=== PATIENT | male | born 1945 | race Caucasian/White ===

== ENCOUNTER 2016-08-13 09:34 | Outpatient (CLI) | payer MEDICARE | END 2016-08-13 09:35 | disposition home or self-care (01) | DX: D47.3 Essential (hemorrhagic) thrombocythemia (principal); Z79.01 Long term (current) use of anticoagulants ==

== ENCOUNTER 2016-08-18 10:50 | Outpatient (CLI) | payer MEDICARE | END 2016-08-18 10:51 | disposition home or self-care (01) | DX: D47.3 Essential (hemorrhagic) thrombocythemia (principal); Z79.01 Long term (current) use of anticoagulants ==

== ENCOUNTER 2016-09-03 08:58 | Outpatient (CLI) | payer MEDICARE | END 2016-09-03 08:59 | disposition home or self-care (01) | DX: D47.3 Essential (hemorrhagic) thrombocythemia (principal); Z79.01 Long term (current) use of anticoagulants ==

== ENCOUNTER 2016-09-17 09:15 | Outpatient (CLI) | payer MEDICARE | END 2016-09-17 09:16 | disposition home or self-care (01) | LOC: LAB.F 09:15 | PROVIDERS: ATTEND Physician Assistant Medical | DX: Z79.01 Long term (current) use of anticoagulants (principal); D47.3 Essential (hemorrhagic) thrombocythemia | CPT/HCPCS: 85610 ==

== ENCOUNTER 2016-09-28 09:58 | Outpatient (CLI) | payer MEDICARE | END 2016-09-28 09:59 | disposition home or self-care (01) | DX: Z79.01 Long term (current) use of anticoagulants (principal); D47.3 Essential (hemorrhagic) thrombocythemia ==

== ENCOUNTER 2016-10-05 09:52 | Outpatient (CLI) | payer MEDICARE | END 2016-10-05 09:53 | disposition home or self-care (01) | DX: D47.3 Essential (hemorrhagic) thrombocythemia (principal); Z79.01 Long term (current) use of anticoagulants ==

== ENCOUNTER 2016-10-19 10:01 | Outpatient (CLI) | payer MEDICARE | END 2016-10-19 10:02 | disposition home or self-care (01) | DX: Z79.01 Long term (current) use of anticoagulants (principal); D47.3 Essential (hemorrhagic) thrombocythemia ==

== ENCOUNTER 2016-11-02 09:38 | Outpatient (CLI) | payer MEDICARE | END 2016-11-02 09:39 | disposition home or self-care (01) | DX: E78.00 Pure hypercholesterolemia, unspecified (principal); Z79.899 Other long term (current) drug therapy; Z79.01 Long term (current) use of anticoagulants ==

== ENCOUNTER 2016-11-16 09:20 | Outpatient (CLI) | payer MEDICARE | END 2016-11-16 09:21 | disposition home or self-care (01) | DX: Z79.01 Long term (current) use of anticoagulants (principal); D47.3 Essential (hemorrhagic) thrombocythemia ==

== ENCOUNTER 2016-12-15 08:27 | Outpatient (CLI) | payer MEDICARE | END 2016-12-15 08:28 | disposition home or self-care (01) | DX: D47.3 Essential (hemorrhagic) thrombocythemia (principal); Z79.01 Long term (current) use of anticoagulants ==

== ENCOUNTER 2016-12-22 09:01 | Outpatient (CLI) | payer MEDICARE | END 2016-12-22 09:02 | disposition home or self-care (01) | LOC: LAB.F 09:01 | PROVIDERS: ATTEND Physician Assistant Medical | DX: D47.3 Essential (hemorrhagic) thrombocythemia (principal); Z79.01 Long term (current) use of anticoagulants | CPT/HCPCS: 85610 ==

== ENCOUNTER 2017-01-14 07:59 | Outpatient (CLI) | payer MEDICARE | END 2017-01-14 08:00 | disposition home or self-care (01) | LOC: LAB.F 07:59 | PROVIDERS: ATTEND Physician Assistant Medical | DX: D47.3 Essential (hemorrhagic) thrombocythemia (principal); Z79.01 Long term (current) use of anticoagulants | CPT/HCPCS: 85610 ==

== ENCOUNTER 2017-02-11 09:44 | Outpatient (CLI) | payer MEDICARE | END 2017-02-11 09:45 | disposition home or self-care (01) | LOC: LAB.F 09:44 | PROVIDERS: ATTEND Physician Assistant Medical | DX: Z79.01 Long term (current) use of anticoagulants (principal) | CPT/HCPCS: 85610 ==

== ENCOUNTER 2017-03-11 08:55 | Outpatient (CLI) | payer MEDICARE | END 2017-03-11 08:56 | disposition home or self-care (01) | LOC: LAB.F 08:55 | PROVIDERS: ATTEND Physician Assistant Medical | DX: D47.3 Essential (hemorrhagic) thrombocythemia (principal); Z79.01 Long term (current) use of anticoagulants | CPT/HCPCS: 85610 ==

== ENCOUNTER 2017-04-08 09:14 | Outpatient (CLI) | payer MEDICARE | END 2017-04-08 09:15 | disposition home or self-care (01) | LOC: LAB.F 09:14 | PROVIDERS: ATTEND Physician Assistant Medical | DX: D47.3 Essential (hemorrhagic) thrombocythemia (principal); Z79.01 Long term (current) use of anticoagulants | CPT/HCPCS: 85610 ==

== ENCOUNTER 2017-04-21 10:12 | Outpatient (CLI) | payer MEDICARE | END 2017-04-21 10:13 | disposition home or self-care (01) | LOC: LAB.F 10:12 | PROVIDERS: ATTEND Physician Assistant Medical | DX: D47.3 Essential (hemorrhagic) thrombocythemia (principal); Z79.01 Long term (current) use of anticoagulants | CPT/HCPCS: 85610 ==

== ENCOUNTER 2017-05-05 08:52 | Outpatient (CLI) | payer MEDICARE | END 2017-05-05 08:53 | disposition home or self-care (01) | LOC: LAB.F 08:52 | PROVIDERS: ATTEND Physician Assistant Medical | DX: D47.3 Essential (hemorrhagic) thrombocythemia (principal); Z79.01 Long term (current) use of anticoagulants | CPT/HCPCS: 85610 ==

== ENCOUNTER 2017-07-12 09:01 | Outpatient (CLI) | payer MEDICARE | END 2017-07-12 09:02 | disposition home or self-care (01) | LOC: LAB.F 09:01 | PROVIDERS: ATTEND Physician Assistant Medical | DX: D47.3 Essential (hemorrhagic) thrombocythemia (principal); Z79.01 Long term (current) use of anticoagulants | CPT/HCPCS: 85610 ==

== ENCOUNTER 2017-08-11 10:10 | Outpatient (CLI) | payer MEDICARE | END 2017-08-11 10:11 | disposition home or self-care (01) | LOC: LAB.F 10:10 | PROVIDERS: ATTEND Physician Assistant Medical | DX: D47.3 Essential (hemorrhagic) thrombocythemia (principal); Z79.01 Long term (current) use of anticoagulants | CPT/HCPCS: 85610 ==

== ENCOUNTER 2017-09-08 09:09 | Outpatient (CLI) | payer MEDICARE | END 2017-09-08 09:10 | disposition home or self-care (01) | LOC: LAB.F 09:09 | PROVIDERS: ATTEND Physician Assistant Medical | DX: D47.3 Essential (hemorrhagic) thrombocythemia (principal); Z79.01 Long term (current) use of anticoagulants | CPT/HCPCS: 85610 ==

== ENCOUNTER 2017-10-07 09:07 | Outpatient (CLI) | payer MEDICARE | END 2017-10-07 09:08 | disposition home or self-care (01) | LOC: LAB.F 09:07 | PROVIDERS: ATTEND Physician Assistant Medical | DX: D47.3 Essential (hemorrhagic) thrombocythemia (principal); Z79.01 Long term (current) use of anticoagulants | CPT/HCPCS: 85610 ==

== ENCOUNTER 2017-10-14 09:55 | Outpatient (CLI) | payer MEDICARE | END 2017-10-14 09:56 | disposition home or self-care (01) | LOC: LAB.F 09:55 | PROVIDERS: ATTEND Physician Assistant Medical | DX: D47.3 Essential (hemorrhagic) thrombocythemia (principal); Z79.01 Long term (current) use of anticoagulants | CPT/HCPCS: 85610 ==

== ENCOUNTER 2017-10-21 09:37 | Outpatient (CLI) | payer MEDICARE | END 2017-10-21 09:38 | disposition home or self-care (01) | LOC: LAB.F 09:37 | PROVIDERS: ATTEND Physician Assistant Medical | DX: D47.3 Essential (hemorrhagic) thrombocythemia (principal); Z79.01 Long term (current) use of anticoagulants | CPT/HCPCS: 85610 ==

== ENCOUNTER 2017-11-04 09:56 | Outpatient (CLI) | payer MEDICARE | END 2017-11-04 09:57 | disposition home or self-care (01) | LOC: LAB.F 09:56 | PROVIDERS: ATTEND Physician Assistant Medical | DX: I82.509 Chronic embolism and thrombosis of unspecified deep veins of unspecified lower extremity (principal); I26.99 Other pulmonary embolism without acute cor pulmonale; Z79.01 Long term (current) use of anticoagulants | CPT/HCPCS: 85610 ==

== ENCOUNTER 2017-11-11 10:14 | Outpatient (CLI) | payer MEDICARE | END 2017-11-11 10:15 | disposition home or self-care (01) | LOC: LAB.F 10:14 | PROVIDERS: ATTEND Physician Assistant Medical | DX: I26.99 Other pulmonary embolism without acute cor pulmonale (principal); I82.509 Chronic embolism and thrombosis of unspecified deep veins of unspecified lower extremity; Z79.01 Long term (current) use of anticoagulants | CPT/HCPCS: 85610 ==

== ENCOUNTER 2017-11-22 08:07 | Outpatient (CLI) | payer MEDICARE | END 2017-11-22 08:08 | disposition home or self-care (01) | LOC: LAB.F 08:07 | PROVIDERS: ATTEND Physician Assistant Medical | DX: I82.509 Chronic embolism and thrombosis of unspecified deep veins of unspecified lower extremity (principal); I26.99 Other pulmonary embolism without acute cor pulmonale; Z79.01 Long term (current) use of anticoagulants | CPT/HCPCS: 85610 ==

== ENCOUNTER 2017-12-07 08:46 | Outpatient (CLI) | payer MEDICARE | END 2017-12-07 08:47 | disposition home or self-care (01) | LOC: LAB.F 08:46 | PROVIDERS: ATTEND Physician Assistant Medical | DX: I82.509 Chronic embolism and thrombosis of unspecified deep veins of unspecified lower extremity (principal); I26.99 Other pulmonary embolism without acute cor pulmonale; Z79.01 Long term (current) use of anticoagulants | CPT/HCPCS: 85610 ==

== ENCOUNTER 2018-01-10 09:28 | Outpatient (CLI) | payer MEDICARE | END 2018-01-10 09:29 | disposition home or self-care (01) | LOC: LAB.F 09:28 | PROVIDERS: ATTEND Physician Assistant Medical | DX: I82.509 Chronic embolism and thrombosis of unspecified deep veins of unspecified lower extremity (principal); I26.99 Other pulmonary embolism without acute cor pulmonale; Z79.01 Long term (current) use of anticoagulants | CPT/HCPCS: 85610 ==

== ENCOUNTER 2018-01-16 08:19 | Outpatient (CLI) | payer MEDICARE | END 2018-01-16 08:20 | disposition home or self-care (01) | LOC: LAB.F 08:19 | PROVIDERS: ATTEND Physician Assistant Medical | DX: I82.509 Chronic embolism and thrombosis of unspecified deep veins of unspecified lower extremity (principal); I26.99 Other pulmonary embolism without acute cor pulmonale; Z79.01 Long term (current) use of anticoagulants | CPT/HCPCS: 85610 ==

== ENCOUNTER 2018-01-31 09:08 | Outpatient (CLI) | payer MEDICARE | END 2018-01-31 09:09 | disposition home or self-care (01) | LOC: LAB.F 09:08 | PROVIDERS: ATTEND Physician Assistant Medical | DX: I82.509 Chronic embolism and thrombosis of unspecified deep veins of unspecified lower extremity (principal); I26.99 Other pulmonary embolism without acute cor pulmonale; Z79.01 Long term (current) use of anticoagulants | CPT/HCPCS: 85610 ==

== ENCOUNTER 2018-02-07 08:31 | Outpatient (CLI) | payer MEDICARE | END 2018-02-07 08:32 | disposition home or self-care (01) | LOC: LAB.F 08:31 | PROVIDERS: ATTEND Physician Assistant Medical | DX: I82.509 Chronic embolism and thrombosis of unspecified deep veins of unspecified lower extremity (principal); Z79.01 Long term (current) use of anticoagulants; I26.99 Other pulmonary embolism without acute cor pulmonale | CPT/HCPCS: 85610 ==

== ENCOUNTER 2018-02-14 09:17 | Outpatient (CLI) | payer MEDICARE | END 2018-02-14 09:18 | disposition home or self-care (01) | LOC: LAB.F 09:17 | PROVIDERS: ATTEND Physician Assistant Medical | DX: Z79.01 Long term (current) use of anticoagulants (principal); I82.509 Chronic embolism and thrombosis of unspecified deep veins of unspecified lower extremity; I26.99 Other pulmonary embolism without acute cor pulmonale | CPT/HCPCS: 85610 ==

== ENCOUNTER 2018-03-03 08:15 | Outpatient (CLI) | payer MEDICARE ==
[2018-03-03 11:40] LABS: BASOPHILS % (AUTO) 0.4 %; EOSINOPHILS # (AUTO) 0.2 10^3/uL (0.0-0.7); HGB - HEMOGLOBIN 15.9 g/dL (14.0-18.0); LYMPHOCYTES # (AUTO) 2.8 10^3/uL (1.5-3.5); LYMPHOCYTES % (AUTO) 45.4 %; MEAN CORPUSCULAR HEMOGLOBIN 32.3 pg (27.0-31.0); MEAN CORPUSCULAR HGB CONC 33.9 g/dL (32.0-36.0); MEAN CORPUSCULAR VOLUME 95.2 fL (80.0-94.0); MEAN PLATELET VOLUME 8.3 fL (7.4-11.4); MONOCYTES # (AUTO) 0.6 10^3/uL (0.0-1.0); MONOCYTES % (AUTO) 9.4 %; NEUTROPHILS # (AUTO) 2.5 10^3/uL (1.5-6.6); NEUTROPHILS % (AUTO) 40.8 %; PLT - PLATELET COUNT 150 10^3/uL (130-450); RED BLOOD COUNT 4.92 10^6/uL (4.70-6.10); RED CELL DISTRIBUTION WIDTH 14.5 % (12.0-15.0); WHITE BLOOD COUNT 6.1 x10^3/uL (4.8-10.8)
[2018-03-03 12:03] LABS: ALBUMIN 3.9 g/dL (3.2-5.5); ALBUMIN/GLOBULIN RATIO 1.2 (1.0-2.2); ALKALINE PHOSPHATASE 48 IU/L (42-121); ALT ALANINE AMINOTRANSFERASE 25 IU/L (10-60); AST ASPARTATE AMINOTRANSFERASE 26 IU/L (10-42); BILIRUBIN,TOTAL 0.9 mg/dL (0.2-1.0); BUN - BLOOD UREA NITROGEN 16 mg/dL (6-20); CARBON DIOXIDE - CO2 27 mmol/L (21-32); CHLORIDE 99 mmol/L (101-111); CHOL/HDL RATIO 2.7 (<5.0); CHOLESTEROL 248 mg/dL; CREATININE 0.8 mg/dL (0.6-1.2); GFR - MDRD 94 (>89); GLUCOSE 116 mg/dL (70-100); HDL CHOLESTEROL 92 mg/dL; LDL CHOLESTEROL,CALCULATED 142 mg/dL; LDL/HDL RATIO 1.5 (<3.6); SODIUM 133 mmol/L (135-145); TOTAL PROTEIN 7.2 g/dL (6.7-8.2); VLDL CHOLESTEROL 14 mg/dL
== END 2018-03-03 08:16 | disposition home or self-care (01) ==
LOC: LAB.F 08:15
PROVIDERS: ATTEND Physician Assistant Medical
DX: I82.509 Chronic embolism and thrombosis of unspecified deep veins of unspecified lower extremity (principal); I26.99 Other pulmonary embolism without acute cor pulmonale; Z79.01 Long term (current) use of anticoagulants; I10 Essential (primary) hypertension; E78.5 Hyperlipidemia, unspecified; Z12.5 Encounter for screening for malignant neoplasm of prostate; D47.3 Essential (hemorrhagic) thrombocythemia
CPT/HCPCS: 36415; 80053; 80061; 85025; 85610; G0103; 83721; 84153

== ENCOUNTER 2018-03-16 09:15 | Outpatient (CLI) | payer MEDICARE | END 2018-03-16 09:16 | disposition home or self-care (01) | LOC: LAB.F 09:15 | PROVIDERS: ATTEND Physician Assistant Medical | DX: I26.99 Other pulmonary embolism without acute cor pulmonale (principal); I82.509 Chronic embolism and thrombosis of unspecified deep veins of unspecified lower extremity; Z79.01 Long term (current) use of anticoagulants | CPT/HCPCS: 85610 ==

== ENCOUNTER 2018-03-24 07:42 | Outpatient (CLI) | payer MEDICARE | END 2018-03-24 07:43 | disposition home or self-care (01) | LOC: LAB.F 07:42 | PROVIDERS: ATTEND Physician Assistant Medical | DX: I82.509 Chronic embolism and thrombosis of unspecified deep veins of unspecified lower extremity (principal); I26.99 Other pulmonary embolism without acute cor pulmonale; Z79.01 Long term (current) use of anticoagulants | CPT/HCPCS: 85610 ==

== ENCOUNTER 2018-03-30 08:18 | Outpatient (CLI) | payer MEDICARE | END 2018-03-30 08:19 | disposition home or self-care (01) | LOC: LAB.F 08:18 | PROVIDERS: ATTEND Physician Assistant Medical | DX: I82.509 Chronic embolism and thrombosis of unspecified deep veins of unspecified lower extremity (principal); I26.99 Other pulmonary embolism without acute cor pulmonale; Z79.01 Long term (current) use of anticoagulants | CPT/HCPCS: 85610 ==

== ENCOUNTER 2018-04-13 07:50 | Outpatient (CLI) | payer MEDICARE | END 2018-04-13 07:51 | disposition home or self-care (01) | LOC: LAB.F 07:50 | PROVIDERS: ATTEND Physician Assistant Medical | DX: I82.509 Chronic embolism and thrombosis of unspecified deep veins of unspecified lower extremity (principal); I26.99 Other pulmonary embolism without acute cor pulmonale; Z79.01 Long term (current) use of anticoagulants | CPT/HCPCS: 85610 ==

== ENCOUNTER 2018-05-11 08:56 | Outpatient (CLI) | payer MEDICARE | END 2018-05-11 08:57 | disposition home or self-care (01) | LOC: LAB.F 08:56 | PROVIDERS: ATTEND Physician Assistant Medical | DX: I82.509 Chronic embolism and thrombosis of unspecified deep veins of unspecified lower extremity (principal); I26.99 Other pulmonary embolism without acute cor pulmonale; Z79.01 Long term (current) use of anticoagulants | CPT/HCPCS: 85610 ==

== ENCOUNTER 2018-05-23 09:13 | Outpatient (CLI) | payer MEDICARE | END 2018-05-23 09:14 | disposition home or self-care (01) | LOC: LAB.F 09:13 | PROVIDERS: ATTEND Physician Assistant Medical | DX: I82.509 Chronic embolism and thrombosis of unspecified deep veins of unspecified lower extremity (principal); I26.99 Other pulmonary embolism without acute cor pulmonale; Z79.01 Long term (current) use of anticoagulants | CPT/HCPCS: 85610 ==

== ENCOUNTER 2018-05-30 09:35 | Outpatient (CLI) | payer MEDICARE | END 2018-05-30 09:36 | disposition home or self-care (01) | LOC: LAB.F 09:35 | PROVIDERS: ATTEND Physician Assistant Medical | DX: Z79.01 Long term (current) use of anticoagulants (principal); I82.509 Chronic embolism and thrombosis of unspecified deep veins of unspecified lower extremity; I26.99 Other pulmonary embolism without acute cor pulmonale | CPT/HCPCS: 85610 ==

== ENCOUNTER 2018-06-06 09:28 | Outpatient (CLI) | payer MEDICARE | END 2018-06-06 09:29 | disposition home or self-care (01) | LOC: LAB.F 09:28 | PROVIDERS: ATTEND Physician Assistant Medical | DX: I82.509 Chronic embolism and thrombosis of unspecified deep veins of unspecified lower extremity (principal); I26.99 Other pulmonary embolism without acute cor pulmonale; Z79.01 Long term (current) use of anticoagulants | CPT/HCPCS: 85610 ==

== ENCOUNTER 2018-06-13 09:10 | Outpatient (CLI) | payer MEDICARE | END 2018-06-13 09:11 | disposition home or self-care (01) | LOC: LAB.F 09:10 | PROVIDERS: ATTEND Physician Assistant Medical | DX: I82.509 Chronic embolism and thrombosis of unspecified deep veins of unspecified lower extremity (principal); I26.99 Other pulmonary embolism without acute cor pulmonale; Z79.01 Long term (current) use of anticoagulants | CPT/HCPCS: 85610 ==

== ENCOUNTER 2018-06-20 10:00 | Outpatient (CLI) | payer MEDICARE ==
[2018-06-20 17:58] LABS: INR 1.8 (0.8-1.2); PT - PROTHROMBIN TIME 20.5 secs (9.9-12.6)
== END 2018-06-20 10:01 | disposition home or self-care (01) ==
LOC: LAB.F 10:00
PROVIDERS: ATTEND Physician Assistant Medical
DX: I82.509 Chronic embolism and thrombosis of unspecified deep veins of unspecified lower extremity (principal); Z79.01 Long term (current) use of anticoagulants; I26.99 Other pulmonary embolism without acute cor pulmonale
CPT/HCPCS: 36415; 85610

== ENCOUNTER 2018-07-03 09:33 | Outpatient (CLI) | payer MEDICARE | END 2018-07-03 09:34 | disposition home or self-care (01) | LOC: LAB.F 09:33 | PROVIDERS: ATTEND Physician Assistant Medical | DX: I82.509 Chronic embolism and thrombosis of unspecified deep veins of unspecified lower extremity (principal); Z79.01 Long term (current) use of anticoagulants; I26.99 Other pulmonary embolism without acute cor pulmonale | CPT/HCPCS: 85610 ==

== ENCOUNTER 2018-07-27 08:18 | Outpatient (CLI) | payer MEDICARE | END 2018-07-27 08:19 | disposition home or self-care (01) | LOC: LAB.F 08:18 | PROVIDERS: ATTEND Physician Assistant Medical | DX: I82.509 Chronic embolism and thrombosis of unspecified deep veins of unspecified lower extremity (principal); I26.99 Other pulmonary embolism without acute cor pulmonale; Z79.01 Long term (current) use of anticoagulants | CPT/HCPCS: 85610 ==

== ENCOUNTER 2018-08-09 09:14 | Outpatient (CLI) | payer MEDICARE | END 2018-08-09 09:15 | disposition home or self-care (01) | LOC: LAB.F 09:14 | PROVIDERS: ATTEND Physician Assistant Medical | DX: Z79.01 Long term (current) use of anticoagulants (principal); I82.509 Chronic embolism and thrombosis of unspecified deep veins of unspecified lower extremity; I26.99 Other pulmonary embolism without acute cor pulmonale | CPT/HCPCS: 85610 ==

== ENCOUNTER 2018-08-24 09:35 | Outpatient (CLI) | payer MEDICARE | END 2018-08-24 09:36 | disposition home or self-care (01) | LOC: LAB.F 09:35 | PROVIDERS: ATTEND Physician Assistant Medical | DX: I82.509 Chronic embolism and thrombosis of unspecified deep veins of unspecified lower extremity (principal); I26.99 Other pulmonary embolism without acute cor pulmonale; Z79.01 Long term (current) use of anticoagulants | CPT/HCPCS: 85610 ==

== ENCOUNTER 2018-09-14 09:32 | Outpatient (CLI) | payer MEDICARE | END 2018-09-14 09:33 | disposition home or self-care (01) | LOC: LAB.F 09:32 | PROVIDERS: ATTEND Physician Assistant Medical | DX: I82.509 Chronic embolism and thrombosis of unspecified deep veins of unspecified lower extremity (principal); Z79.01 Long term (current) use of anticoagulants; I26.99 Other pulmonary embolism without acute cor pulmonale | CPT/HCPCS: 85610 ==

== ENCOUNTER 2018-09-21 09:01 | Outpatient (CLI) | payer MEDICARE | END 2018-09-21 09:02 | disposition home or self-care (01) | LOC: LAB.F 09:01 | PROVIDERS: ATTEND Physician Assistant Medical | DX: I82.509 Chronic embolism and thrombosis of unspecified deep veins of unspecified lower extremity (principal); Z79.01 Long term (current) use of anticoagulants; I26.99 Other pulmonary embolism without acute cor pulmonale | CPT/HCPCS: 85610 ==

== ENCOUNTER 2018-09-29 07:51 | Outpatient (CLI) | payer MEDICARE ==
[2018-09-29 11:02] LABS: BASOPHILS % (AUTO) 0.4 %; EOSINOPHILS # (AUTO) 0.3 10^3/uL (0.0-0.7); EOSINOPHILS % (AUTO) 3.9 %; HGB - HEMOGLOBIN 16.1 g/dL (14.0-18.0); LYMPHOCYTES # (AUTO) 3.3 10^3/uL (1.5-3.5); LYMPHOCYTES % (AUTO) 45.1 %; MEAN CORPUSCULAR HEMOGLOBIN 32.5 pg (27.0-31.0); MEAN CORPUSCULAR HGB CONC 34.2 g/dL (32.0-36.0); MEAN CORPUSCULAR VOLUME 95.1 fL (80.0-94.0); MEAN PLATELET VOLUME 8.6 fL (7.4-11.4); MONOCYTES # (AUTO) 0.6 10^3/uL (0.0-1.0); MONOCYTES % (AUTO) 7.9 %; NEUTROPHILS # (AUTO) 3.2 10^3/uL (1.5-6.6); NEUTROPHILS % (AUTO) 42.7 %; PLT - PLATELET COUNT 158 10^3/uL (130-450); RED BLOOD COUNT 4.96 10^6/uL (4.70-6.10); RED CELL DISTRIBUTION WIDTH 13.6 % (12.0-15.0); WHITE BLOOD COUNT 7.4 x10^3/uL (4.8-10.8)
[2018-09-29 11:26] LABS: ALBUMIN 3.9 g/dL (3.2-5.5); ALBUMIN/GLOBULIN RATIO 1.2 (1.0-2.2); ALKALINE PHOSPHATASE 49 IU/L (42-121); ALT ALANINE AMINOTRANSFERASE 27 IU/L (10-60); AST ASPARTATE AMINOTRANSFERASE 27 IU/L (10-42); BILIRUBIN,TOTAL 1.3 mg/dL (0.2-1.0); BUN - BLOOD UREA NITROGEN 21 mg/dL (6-20); CALCIUM 9.1 mg/dL (8.5-10.3); CARBON DIOXIDE - CO2 27 mmol/L (21-32); CHLORIDE 99 mmol/L (101-111); CHOL/HDL RATIO 3.3 (<5.0); CHOLESTEROL 268 mg/dL; CREATININE 0.8 mg/dL (0.6-1.2); GFR - MDRD 94 (>89); GLUCOSE 113 mg/dL (70-100); HDL CHOLESTEROL 82 mg/dL; LDL CHOLESTEROL,CALCULATED 160 mg/dL; SODIUM 138 mmol/L (135-145); TOTAL PROTEIN 7.2 g/dL (6.7-8.2); VLDL CHOLESTEROL 26 mg/dL
[2018-09-29 11:27] LABS: HB2 TOTAL 18.4 g/dL; HEMOGLOBIN A1C 0.68 g/dL; HEMOGLOBIN A1C % 5.5 % (4.6-6.2)
== END 2018-09-29 07:52 | disposition home or self-care (01) ==
LOC: LAB.F 07:51
PROVIDERS: ATTEND Physician Assistant Medical
DX: I10 Essential (primary) hypertension (principal); E78.5 Hyperlipidemia, unspecified; R73.01 Impaired fasting glucose
CPT/HCPCS: 36415; 80053; 80061; 83036; 83721; 85025

== ENCOUNTER 2018-10-05 09:11 | Outpatient (CLI) | payer MEDICARE | END 2018-10-05 09:12 | disposition home or self-care (01) | LOC: LAB.F 09:11 | PROVIDERS: ATTEND Physician Assistant Medical | DX: I82.509 Chronic embolism and thrombosis of unspecified deep veins of unspecified lower extremity (principal); I26.99 Other pulmonary embolism without acute cor pulmonale; Z79.01 Long term (current) use of anticoagulants | CPT/HCPCS: 85610 ==

== ENCOUNTER 2018-10-11 09:04 | Outpatient (CLI) | payer MEDICARE | END 2018-10-11 09:05 | disposition home or self-care (01) | LOC: LAB.F 09:04 | PROVIDERS: ATTEND Physician Assistant Medical | DX: I82.509 Chronic embolism and thrombosis of unspecified deep veins of unspecified lower extremity (principal); Z79.01 Long term (current) use of anticoagulants; I26.99 Other pulmonary embolism without acute cor pulmonale | CPT/HCPCS: 85610 ==

== ENCOUNTER 2018-10-23 09:07 | Outpatient (CLI) | payer MEDICARE | END 2018-10-23 09:08 | disposition home or self-care (01) | LOC: LAB.F 09:07 | PROVIDERS: ATTEND Physician Assistant Medical | DX: I82.509 Chronic embolism and thrombosis of unspecified deep veins of unspecified lower extremity (principal); I26.99 Other pulmonary embolism without acute cor pulmonale; Z79.01 Long term (current) use of anticoagulants | CPT/HCPCS: 85610 ==

== ENCOUNTER 2018-11-23 08:45 | Outpatient (CLI) | payer MEDICARE | END 2018-11-23 08:46 | disposition home or self-care (01) | LOC: LAB.F 08:45 | PROVIDERS: ATTEND Physician Assistant Medical | DX: Z79.01 Long term (current) use of anticoagulants (principal); I82.509 Chronic embolism and thrombosis of unspecified deep veins of unspecified lower extremity; I26.99 Other pulmonary embolism without acute cor pulmonale | CPT/HCPCS: 85610 ==

== ENCOUNTER 2018-12-21 09:03 | Outpatient (CLI) | payer MEDICARE | END 2018-12-21 09:04 | disposition home or self-care (01) | LOC: LAB.F 09:03 | PROVIDERS: ATTEND Physician Assistant Medical | DX: Z79.01 Long term (current) use of anticoagulants (principal); I82.509 Chronic embolism and thrombosis of unspecified deep veins of unspecified lower extremity; I26.99 Other pulmonary embolism without acute cor pulmonale | CPT/HCPCS: 85610 ==

== ENCOUNTER 2019-01-04 09:50 | Outpatient (CLI) | payer MEDICARE | END 2019-01-04 09:51 | disposition home or self-care (01) | LOC: LAB.F 09:50 | PROVIDERS: ATTEND Physician Assistant Medical | DX: E78.5 Hyperlipidemia, unspecified (principal) ==

== ENCOUNTER 2019-01-05 09:02 | Outpatient (CLI) | payer MEDICARE ==
[2019-01-05 17:57] LABS: CHOL/HDL RATIO 3.2 (<5.0); CHOLESTEROL 234 mg/dL; HDL CHOLESTEROL 74 mg/dL; LDL CHOLESTEROL,CALCULATED 145 mg/dL; VLDL CHOLESTEROL 15 mg/dL
== END 2019-01-05 09:03 | disposition home or self-care (01) ==
LOC: LAB.F 09:02
PROVIDERS: ATTEND Physician Assistant Medical
DX: E78.5 Hyperlipidemia, unspecified (principal)
CPT/HCPCS: 36415; 80061; 83721

== ENCOUNTER 2019-01-18 09:00 | Outpatient (CLI) | payer MEDICARE | END 2019-01-18 09:01 | disposition home or self-care (01) | LOC: LAB.F 09:00 | PROVIDERS: ATTEND Physician Assistant Medical | DX: I82.509 Chronic embolism and thrombosis of unspecified deep veins of unspecified lower extremity (principal); Z79.01 Long term (current) use of anticoagulants; I26.99 Other pulmonary embolism without acute cor pulmonale | CPT/HCPCS: 85610 ==

== ENCOUNTER 2019-02-15 08:48 | Outpatient (CLI) | payer MEDICARE | END 2019-02-15 08:49 | disposition home or self-care (01) | LOC: LAB.S 08:48 | PROVIDERS: ATTEND Physician Assistant Medical | DX: Z79.01 Long term (current) use of anticoagulants (principal); I82.509 Chronic embolism and thrombosis of unspecified deep veins of unspecified lower extremity; I26.99 Other pulmonary embolism without acute cor pulmonale | CPT/HCPCS: 85610 ==

== ENCOUNTER 2019-03-15 09:30 | Outpatient (CLI) | payer MEDICARE | END 2019-03-15 09:31 | disposition home or self-care (01) | LOC: LAB.S 09:30 | PROVIDERS: ATTEND Physician Assistant Medical | DX: I26.99 Other pulmonary embolism without acute cor pulmonale (principal); I82.509 Chronic embolism and thrombosis of unspecified deep veins of unspecified lower extremity; Z79.01 Long term (current) use of anticoagulants | CPT/HCPCS: 85610 ==

== ENCOUNTER 2019-04-12 09:39 | Outpatient (CLI) | payer MEDICARE | END 2019-04-12 09:40 | disposition home or self-care (01) | LOC: LAB.S 09:39 | PROVIDERS: ATTEND Physician Assistant Medical | DX: I82.509 Chronic embolism and thrombosis of unspecified deep veins of unspecified lower extremity (principal); I26.99 Other pulmonary embolism without acute cor pulmonale; Z79.01 Long term (current) use of anticoagulants | CPT/HCPCS: 85610 ==

== ENCOUNTER 2019-04-16 08:55 | Outpatient (CLI) | payer MEDICARE | END 2019-04-16 08:56 | disposition home or self-care (01) | LOC: LAB.S 08:55 | PROVIDERS: ATTEND Physician Assistant Medical | DX: Z79.01 Long term (current) use of anticoagulants (principal); I82.509 Chronic embolism and thrombosis of unspecified deep veins of unspecified lower extremity; I26.99 Other pulmonary embolism without acute cor pulmonale | CPT/HCPCS: 85610 ==

== ENCOUNTER 2019-04-27 09:02 | Outpatient (CLI) | payer MEDICARE | END 2019-04-27 09:03 | disposition home or self-care (01) | LOC: LAB.S 09:02 | PROVIDERS: ATTEND Physician Assistant Medical | DX: Z79.01 Long term (current) use of anticoagulants (principal); I82.509 Chronic embolism and thrombosis of unspecified deep veins of unspecified lower extremity; I26.99 Other pulmonary embolism without acute cor pulmonale | CPT/HCPCS: 85610 ==

== ENCOUNTER 2019-05-11 08:33 | Outpatient (CLI) | payer MEDICARE | END 2019-05-11 08:34 | disposition home or self-care (01) | LOC: LAB.S 08:33 | PROVIDERS: ATTEND Physician Assistant Medical | DX: Z79.01 Long term (current) use of anticoagulants (principal); I82.509 Chronic embolism and thrombosis of unspecified deep veins of unspecified lower extremity; I26.99 Other pulmonary embolism without acute cor pulmonale | CPT/HCPCS: 85610 ==

== ENCOUNTER 2019-05-18 08:29 | Outpatient (CLI) | payer MEDICARE | END 2019-05-18 08:30 | disposition home or self-care (01) | LOC: LAB.S 08:29 | PROVIDERS: ATTEND Physician Assistant Medical | DX: I82.509 Chronic embolism and thrombosis of unspecified deep veins of unspecified lower extremity (principal); I26.99 Other pulmonary embolism without acute cor pulmonale; Z79.01 Long term (current) use of anticoagulants | CPT/HCPCS: 85610 ==

== ENCOUNTER 2019-05-25 09:19 | Outpatient (CLI) | payer MEDICARE | END 2019-05-25 09:20 | disposition home or self-care (01) | LOC: LAB.S 09:19 | PROVIDERS: ATTEND Physician Assistant Medical | DX: Z79.01 Long term (current) use of anticoagulants (principal); I82.509 Chronic embolism and thrombosis of unspecified deep veins of unspecified lower extremity; I26.99 Other pulmonary embolism without acute cor pulmonale | CPT/HCPCS: 85610 ==

== ENCOUNTER 2019-06-01 09:16 | Outpatient (CLI) | payer MEDICARE | END 2019-06-01 09:17 | disposition home or self-care (01) | LOC: LAB.S 09:16 | PROVIDERS: ATTEND Physician Assistant Medical | DX: Z79.01 Long term (current) use of anticoagulants (principal); I82.509 Chronic embolism and thrombosis of unspecified deep veins of unspecified lower extremity; I26.99 Other pulmonary embolism without acute cor pulmonale | CPT/HCPCS: 85610 ==

== ENCOUNTER 2019-06-15 08:09 | Outpatient (CLI) | payer MEDICARE | END 2019-06-15 08:10 | disposition home or self-care (01) | LOC: LAB.S 08:09 | PROVIDERS: ATTEND Physician Assistant Medical | DX: Z79.01 Long term (current) use of anticoagulants (principal); I82.509 Chronic embolism and thrombosis of unspecified deep veins of unspecified lower extremity; I26.99 Other pulmonary embolism without acute cor pulmonale | CPT/HCPCS: 85610 ==

== ENCOUNTER 2019-07-13 08:18 | Outpatient (CLI) | payer MEDICARE | END 2019-07-13 23:59 | disposition home or self-care (01) | LOC: LAB.S 08:18 | PROVIDERS: ATTEND Physician Assistant Medical | DX: Z79.01 Long term (current) use of anticoagulants (principal); I82.509 Chronic embolism and thrombosis of unspecified deep veins of unspecified lower extremity; I26.99 Other pulmonary embolism without acute cor pulmonale | CPT/HCPCS: 85610 ==

== ENCOUNTER 2019-07-20 07:59 | Outpatient (CLI) | payer MEDICARE | END 2019-07-20 08:00 | disposition home or self-care (01) | LOC: LAB.S 07:59 | PROVIDERS: ATTEND Physician Assistant Medical | DX: Z79.01 Long term (current) use of anticoagulants (principal); I82.509 Chronic embolism and thrombosis of unspecified deep veins of unspecified lower extremity; I26.99 Other pulmonary embolism without acute cor pulmonale | CPT/HCPCS: 85610 ==

== ENCOUNTER 2019-07-27 08:18 | Outpatient (CLI) | payer MEDICARE | END 2019-07-27 08:19 | disposition home or self-care (01) | LOC: LAB.S 08:18 | PROVIDERS: ATTEND Physician Assistant Medical | DX: Z79.01 Long term (current) use of anticoagulants (principal); I82.509 Chronic embolism and thrombosis of unspecified deep veins of unspecified lower extremity; I26.99 Other pulmonary embolism without acute cor pulmonale | CPT/HCPCS: 85610 ==

== ENCOUNTER 2019-08-10 08:23 | Outpatient (CLI) | payer MEDICARE | END 2019-08-10 08:24 | disposition home or self-care (01) | LOC: LAB.S 08:23 | PROVIDERS: ATTEND Physician Assistant Medical | DX: Z79.01 Long term (current) use of anticoagulants (principal); I82.509 Chronic embolism and thrombosis of unspecified deep veins of unspecified lower extremity; I26.99 Other pulmonary embolism without acute cor pulmonale | CPT/HCPCS: 85610 ==

== ENCOUNTER 2019-09-07 07:43 | Outpatient (CLI) | payer MEDICARE | END 2019-09-07 07:44 | disposition home or self-care (01) | LOC: LAB.S 07:43 | PROVIDERS: ATTEND Physician Assistant Medical | DX: Z79.01 Long term (current) use of anticoagulants (principal); I82.509 Chronic embolism and thrombosis of unspecified deep veins of unspecified lower extremity; I26.99 Other pulmonary embolism without acute cor pulmonale | CPT/HCPCS: 85610 ==

== ENCOUNTER 2019-09-18 08:22 | Outpatient (CLI) | payer MEDICARE | END 2019-09-18 08:23 | disposition home or self-care (01) | LOC: LAB.S 08:22 | PROVIDERS: ATTEND Physician Assistant Medical | DX: Z79.01 Long term (current) use of anticoagulants (principal); I82.509 Chronic embolism and thrombosis of unspecified deep veins of unspecified lower extremity; I26.99 Other pulmonary embolism without acute cor pulmonale | CPT/HCPCS: 85610 ==

== ENCOUNTER 2019-09-25 08:50 | Outpatient (CLI) | payer MEDICARE | END 2019-09-25 08:51 | disposition home or self-care (01) | LOC: LAB.S 08:50 | PROVIDERS: ATTEND Physician Assistant Medical | DX: Z79.01 Long term (current) use of anticoagulants (principal); I82.509 Chronic embolism and thrombosis of unspecified deep veins of unspecified lower extremity; I26.99 Other pulmonary embolism without acute cor pulmonale | CPT/HCPCS: 85610 ==

== ENCOUNTER 2019-10-02 07:20 | Outpatient (CLI) | payer MEDICARE | END 2019-10-02 07:21 | disposition home or self-care (01) | LOC: LAB.S 07:20 | PROVIDERS: ATTEND Physician Assistant Medical | DX: I82.509 Chronic embolism and thrombosis of unspecified deep veins of unspecified lower extremity (principal); I26.99 Other pulmonary embolism without acute cor pulmonale; Z79.01 Long term (current) use of anticoagulants | CPT/HCPCS: 85610 ==

== ENCOUNTER 2019-10-15 08:19 | Outpatient (CLI) | payer MEDICARE | END 2019-10-15 08:20 | disposition home or self-care (01) | LOC: LAB.S 08:19 | PROVIDERS: ATTEND Physician Assistant Medical | DX: I26.99 Other pulmonary embolism without acute cor pulmonale (principal); Z79.01 Long term (current) use of anticoagulants; I82.509 Chronic embolism and thrombosis of unspecified deep veins of unspecified lower extremity | CPT/HCPCS: 85610 ==

== ENCOUNTER 2019-10-22 08:32 | Outpatient (CLI) | payer MEDICARE | END 2019-10-22 08:33 | disposition home or self-care (01) | LOC: LAB.S 08:32 | PROVIDERS: ATTEND Physician Assistant Medical | DX: I82.509 Chronic embolism and thrombosis of unspecified deep veins of unspecified lower extremity (principal); Z79.01 Long term (current) use of anticoagulants; I26.99 Other pulmonary embolism without acute cor pulmonale | CPT/HCPCS: 85610 ==

== ENCOUNTER 2019-10-30 07:08 | Outpatient (CLI) | payer MEDICARE | END 2019-10-30 07:09 | disposition home or self-care (01) | LOC: LAB.S 07:08 | PROVIDERS: ATTEND Physician Assistant Medical | DX: I82.509 Chronic embolism and thrombosis of unspecified deep veins of unspecified lower extremity (principal); I26.99 Other pulmonary embolism without acute cor pulmonale; Z79.01 Long term (current) use of anticoagulants | CPT/HCPCS: 85610 ==

== ENCOUNTER 2019-11-27 12:49 | Outpatient (CLI) | payer MEDICARE | END 2019-11-27 12:50 | disposition home or self-care (01) | LOC: LAB 12:49 | PROVIDERS: ATTEND Physician Assistant Medical | DX: I82.509 Chronic embolism and thrombosis of unspecified deep veins of unspecified lower extremity (principal); I26.99 Other pulmonary embolism without acute cor pulmonale; Z79.01 Long term (current) use of anticoagulants | CPT/HCPCS: 85610 ==

== ENCOUNTER 2019-12-04 08:23 | Outpatient (CLI) | payer MEDICARE | END 2019-12-04 08:24 | disposition home or self-care (01) | LOC: LAB 08:23 | PROVIDERS: ATTEND Physician Assistant Medical | DX: I82.509 Chronic embolism and thrombosis of unspecified deep veins of unspecified lower extremity (principal); Z79.01 Long term (current) use of anticoagulants; I26.99 Other pulmonary embolism without acute cor pulmonale | CPT/HCPCS: 85610 ==

== ENCOUNTER 2019-12-19 08:46 | Outpatient (CLI) | payer MEDICARE | END 2019-12-19 08:47 | disposition home or self-care (01) | LOC: LAB 08:46 | PROVIDERS: ATTEND Physician Assistant Medical | DX: I82.509 Chronic embolism and thrombosis of unspecified deep veins of unspecified lower extremity (principal); I26.99 Other pulmonary embolism without acute cor pulmonale; Z79.01 Long term (current) use of anticoagulants | CPT/HCPCS: 85610 ==

== ENCOUNTER 2020-01-01 09:31 | Outpatient (CLI) | payer MEDICARE | END 2020-01-01 09:32 | disposition home or self-care (01) | LOC: LAB 09:31 | PROVIDERS: ATTEND Physician Assistant Medical | DX: I82.509 Chronic embolism and thrombosis of unspecified deep veins of unspecified lower extremity (principal); I26.99 Other pulmonary embolism without acute cor pulmonale; Z79.01 Long term (current) use of anticoagulants | CPT/HCPCS: 85610 ==

== ENCOUNTER 2020-01-11 08:16 | Outpatient (CLI) | payer MEDICARE | END 2020-01-11 08:17 | disposition home or self-care (01) | LOC: LAB.S 08:16 | PROVIDERS: ATTEND Physician Assistant | DX: I82.509 Chronic embolism and thrombosis of unspecified deep veins of unspecified lower extremity (principal); I26.99 Other pulmonary embolism without acute cor pulmonale; Z79.01 Long term (current) use of anticoagulants | CPT/HCPCS: 85610 ==

== ENCOUNTER 2020-02-01 08:10 | Outpatient (CLI) | payer MEDICARE | END 2020-02-01 08:11 | disposition home or self-care (01) | LOC: LAB.S 08:10 | PROVIDERS: ATTEND Registered Nurse | DX: I82.409 Acute embolism and thrombosis of unspecified deep veins of unspecified lower extremity (principal); Z79.01 Long term (current) use of anticoagulants | CPT/HCPCS: 85610 ==

== ENCOUNTER 2020-02-11 07:17 | Outpatient (CLI) | payer MEDICARE | END 2020-02-11 07:18 | disposition home or self-care (01) | LOC: LAB.S 07:17 | PROVIDERS: ATTEND Registered Nurse | DX: I82.509 Chronic embolism and thrombosis of unspecified deep veins of unspecified lower extremity (principal); Z79.01 Long term (current) use of anticoagulants | CPT/HCPCS: 85610 ==

== ENCOUNTER 2020-04-07 08:18 | Outpatient (CLI) | payer MEDICARE ==
[2020-04-07 16:07] LABS: BASOPHILS % (AUTO) 0.6 %; EOSINOPHILS # (AUTO) 0.3 10^3/uL (0.0-0.7); EOSINOPHILS % (AUTO) 4.2 %; LYMPHOCYTES # (AUTO) 2.8 10^3/uL (1.5-3.5); LYMPHOCYTES % (AUTO) 41.9 %; MEAN CORPUSCULAR HEMOGLOBIN 31.5 pg (27.0-31.0); MEAN CORPUSCULAR HGB CONC 32.1 g/dL (32.0-36.0); MEAN CORPUSCULAR VOLUME 98.2 fL (80.0-94.0); MEAN PLATELET VOLUME 10.3 fL (7.4-11.4); MONOCYTES # (AUTO) 0.5 10^3/uL (0.0-1.0); MONOCYTES % (AUTO) 7.9 %; NEUTROPHILS % (AUTO) 45.1 %; PLT - PLATELET COUNT 144 10^3/uL (130-450); RED BLOOD COUNT 5.08 10^6/uL (4.70-6.10); RED CELL DISTRIBUTION WIDTH 13.6 % (12.0-15.0); WHITE BLOOD COUNT 6.7 x10^3/uL (4.8-10.8)
[2020-04-07 16:49] LABS: CHOL/HDL RATIO 2.2 (<5.0); CHOLESTEROL 212 mg/dL; HDL CHOLESTEROL 97 mg/dL; LDL CHOLESTEROL,CALCULATED 98 mg/dL; VLDL CHOLESTEROL 17 mg/dL
== END 2020-04-07 08:19 | disposition home or self-care (01) ==
LOC: LAB.S 08:18
PROVIDERS: ATTEND Registered Nurse
DX: R73.01 Impaired fasting glucose (principal); I82.509 Chronic embolism and thrombosis of unspecified deep veins of unspecified lower extremity; Z79.01 Long term (current) use of anticoagulants; Z79.899 Other long term (current) drug therapy; E78.5 Hyperlipidemia, unspecified; N40.0 Benign prostatic hyperplasia without lower urinary tract symptoms; D47.3 Essential (hemorrhagic) thrombocythemia; I10 Essential (primary) hypertension
CPT/HCPCS: 36415; 80061; 83721; 84153; 84443; 85025; 85610

== ENCOUNTER 2020-04-09 07:52 | Outpatient (CLI) | payer MEDICARE | END 2020-04-09 07:53 | disposition home or self-care (01) | LOC: LAB.S 07:52 | PROVIDERS: ATTEND Registered Nurse | DX: I82.509 Chronic embolism and thrombosis of unspecified deep veins of unspecified lower extremity (principal); Z79.01 Long term (current) use of anticoagulants | CPT/HCPCS: 85610 ==

== ENCOUNTER 2020-04-23 07:38 | Outpatient (CLI) | payer MEDICARE | END 2020-04-23 07:39 | disposition home or self-care (01) | LOC: LAB.S 07:38 | PROVIDERS: ATTEND Registered Nurse | DX: I82.509 Chronic embolism and thrombosis of unspecified deep veins of unspecified lower extremity (principal); Z79.01 Long term (current) use of anticoagulants | CPT/HCPCS: 85610 ==

== ENCOUNTER 2020-06-04 08:32 | Outpatient (CLI) | payer MEDICARE | END 2020-06-04 08:33 | disposition home or self-care (01) | LOC: LAB.S 08:32 | PROVIDERS: ATTEND Registered Nurse | DX: I82.509 Chronic embolism and thrombosis of unspecified deep veins of unspecified lower extremity (principal); Z79.01 Long term (current) use of anticoagulants | CPT/HCPCS: 85610 ==

== ENCOUNTER 2020-07-02 08:32 | Outpatient (CLI) | payer MEDICARE | END 2020-07-02 08:33 | disposition home or self-care (01) | LOC: LAB.S 08:32 | PROVIDERS: ATTEND Registered Nurse | DX: I82.509 Chronic embolism and thrombosis of unspecified deep veins of unspecified lower extremity (principal); Z79.01 Long term (current) use of anticoagulants | CPT/HCPCS: 85610 ==

== ENCOUNTER 2020-07-07 09:11 | Outpatient (CLI) | payer MEDICARE | END 2020-07-07 09:12 | disposition home or self-care (01) | LOC: LAB.S 09:11 | PROVIDERS: ATTEND Registered Nurse | DX: I82.509 Chronic embolism and thrombosis of unspecified deep veins of unspecified lower extremity (principal); Z79.01 Long term (current) use of anticoagulants | CPT/HCPCS: 85610 ==

== ENCOUNTER 2020-07-21 07:32 | Outpatient (CLI) | payer MEDICARE | END 2020-07-21 07:33 | disposition home or self-care (01) | LOC: LAB.S 07:32 | PROVIDERS: ATTEND Registered Nurse | DX: I82.509 Chronic embolism and thrombosis of unspecified deep veins of unspecified lower extremity (principal); Z79.01 Long term (current) use of anticoagulants | CPT/HCPCS: 85610 ==

== ENCOUNTER 2020-07-28 08:41 | Outpatient (CLI) | payer MEDICARE | END 2020-07-28 08:42 | disposition home or self-care (01) | LOC: LAB.S 08:41 | PROVIDERS: ATTEND Registered Nurse | DX: I82.509 Chronic embolism and thrombosis of unspecified deep veins of unspecified lower extremity (principal); Z79.01 Long term (current) use of anticoagulants | CPT/HCPCS: 85610 ==

== ENCOUNTER 2020-08-04 08:13 | Outpatient (CLI) | payer MEDICARE | END 2020-08-04 08:14 | disposition home or self-care (01) | LOC: LAB.S 08:13 | PROVIDERS: ATTEND Registered Nurse | DX: I82.509 Chronic embolism and thrombosis of unspecified deep veins of unspecified lower extremity (principal); Z79.01 Long term (current) use of anticoagulants | CPT/HCPCS: 85610 ==

== ENCOUNTER 2020-08-07 17:07 | Outpatient (CLI) | payer MEDICARE | END 2020-08-07 17:08 | disposition home or self-care (01) | LOC: COV 17:07 | PROVIDERS: ATTEND Ophthalmology | DX: Z01.812 Encounter for preprocedural laboratory examination (principal); Z20.828 Contact with and (suspected) exposure to other viral communicable diseases; H25.811 Combined forms of age-related cataract, right eye ==

== ENCOUNTER 2020-08-14 07:57 | Day surgery (SDC) | payer MEDICARE ==
[~2020-08-14 07:57] MED LIST: BRIMONIDINE 0.2% OPHTH DROPS 5 ML ONE; BSS/LIDOCAINE/EPINEPHRINE 1 ML SYRINGE ONE; EPINEPHrine 1 MG/ML AMP ONE; KETOROLAC 0.45% OPHTH DROPS ONE; PHENYLEPHRINE 2.5% OPHTH 2 ML DROPS ONE; PROPARACAINE 0.5% OPHTH DROPS 15 ML ONE; TIMOLOL 0.5% OPHTH DROPS ONE; TRIAMCIN/MOXIFLOX OPHTHALMIC 0.6 ML VIAL IO ONE; VANCOMYCIN OPHTHALMI 8MG/0.8ML 8 MG/0.8 ML SYRINGE IO ONE
[2020-08-14] MEDS ORDERED: MIDAZOLAM 2 MG/2 ML VIAL ONE (08:33)
--- NOTE | 2020-08-14 08:43 | ANESTHESIA ---
Pre-Anesthesia VS, & Labs - Diagnosis right senile combined cataract - Procedure right cataract extraction with IOL Vital Signs: Temp Pulse Resp BP Pulse Ox 36.1 C L 73 17 164/76 H 99 08/14/20 08:10 08/14/20 08:10 08/14/20 08:10 08/14/20 08:10 08/14/20 08:10 Height: 5 ft 9 in Weight (kg): 78.2 kg Body Mass Index: 25.4 BMI Classification: Overweight - NPO >8 hours Home Medications and Allergies Home Medications: Ambulatory Orders Atorvastatin Calcium 40 mg PO DAILY 08/13/20 Cholecalciferol [Vitamin D3] 6,000 units ORAL DAILY 08/13/20 Lisinopril/Hydrochlorothiazide [Zestoretic 20-25 mg Tablet] 0.5 each PO DAILY 08/13/20 Tamsulosin [Flomax] 0.4 mg PO DAILY 08/13/20 Warfarin [Coumadin] 5 mg PO DAILY 08/13/20 Atorvastatin Calcium 40 mg PO DAILY 08/13/20 Cholecalciferol [Vitamin D3] 6,000 units ORAL DAILY 08/13/20 Lisinopril/Hydrochlorothiazide [Zestoretic 20-25 mg Tablet] 0.5 each PO DAILY 08/13/20 Tamsulosin [Flomax] 0.4 mg PO DAILY 08/13/20 Warfarin [Coumadin] 5 mg PO DAILY 08/13/20 Allergies/Adverse Reactions: Allergies Allergy/AdvReac Type Severity Reaction Status Date / Time No Known Drug Allergies Allergy Verified 08/13/20 14:58 Anes History & Medical History - Anesthetic History Anesthesia Complications: reports: No previous complications - Medical History Cardiovascular: reports: Hypertension, Deep vein thrombosis, Pulmonary embolism Pulmonary: reports: Pneumonia Gastrointestinal: reports: None Urinary: reports: Benign prostate hypertrophy Musculoskeletal: reports: Chronic back pain Skin: reports: None History of Cancer?: No Exam General: Alert Dental: WNL Mouth Opening: Greater than 4 Fingerbreadths Neck Mobility: Normal Mallampati classification: I Thyromental Distance: greater than 6 cm Respiratory: Lungs clear Cardiovascular: Regular rate Plan Anesthesia Type: MAC Consent for Procedure(s) Verified and Reviewed: Yes Code Status: Attempt Resuscitation ASA classification: 2-Mild systemic disease Is this case an emergency?: No
[2020-08-14] MEDS ORDERED: EPINEPHrine 1 MG/ML AMP IR ONE (09:04)
[2020-08-14] MEDS ORDERED: BRIMONIDINE 0.2% OPHTH DROPS 5 ML OPTH ONE (09:04)
[2020-08-14] MEDS ORDERED: CHONDR SULF/HYALURONATE SYRINGE IO ONE (09:05)
[2020-08-14] MEDS ORDERED: BSS/LIDOCAINE/EPINEPHRINE 1 ML SYRINGE IO ONE (09:05)
[2020-08-14] MEDS ORDERED: TIMOLOL 0.5% OPHTH DROPS OPTH ONE (09:05)
[2020-08-14] MEDS ORDERED: TRIAMCIN/MOXIFLOX OPHTHALMIC 0.6 ML VIAL IO ONE (09:06)
[2020-08-14] MEDS ORDERED: PROPARACAINE 0.5% OPHTH DROPS 15 ML EACHEYE ONE (09:06)
[2020-08-14] MEDS ORDERED: VANCOMYCIN OPHTHALMI 8MG/0.8ML 8 MG/0.8 ML SYRINGE IO ONE (09:06)
[2020-08-14] MEDS ORDERED: LACTATED RINGERS 500 ML IV ONE (09:17)
--- NOTE | 2020-08-14 09:34 | ANESTHESIA POST OP EVALUATION ---
Anesthesia Post Eval - Post Anesthesia Eval Vitals: Last Vital Signs Temp 36.1 C L 08/14/20 08:10 Pulse 73 08/14/20 08:10 Resp 17 08/14/20 08:10 BP 164/76 H 08/14/20 08:10 Pulse Ox 99 08/14/20 08:10 CV Function Including HR & BP: positive: Stable Pain Control: positive: Satisfactory Nausea & Vomiting: positive: Negative Mental Status: positive: Patient Participates Respiratory Status: Airway Patent Hydration Status: Satisfactory Anesthesia Complications: positive: None
--- NOTE | 2020-08-14 10:19 | OPERATIVE REPORT ---
DATE OF SERVICE: 08/14/2020 Physician: Bernardo Soliz MD PREOPERATIVE DIAGNOSIS: Complex, visually significant cataract, right eye. 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 This was his first cataract surgery. POSTOPERATIVE DIAGNOSIS: Complex, visually significant cataract, right eye. 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 This was his first cataract surgery. PROCEDURE: Phacoemulsification with posterior chamber intraocular lens implant, right eye. SURGEON: Bernardo Soliz MD ANESTHESIA: Monitored anesthesia care. COMPLICATIONS: None. OPERATIVE INDICATIONS: This is a 75-year-old man with progressive vision loss in the right eye due to a 2+ nuclear sclerotic and large vacuole cataract. Best corrected visual acuity was 20/250, with glare to hand to count fingers vision in the right eye. Indications for surgery are overall decrease in vision, difficulty seeing words on a computer screen, difficulty reading, difficulty seeing words, closed caption or game scores on TV, difficulty seeing street signs, difficulty driving in low light or at night, difficulty driving at night because of headlights from other vehicles, and difficulty with glare or bright lights in any situation, and difficulty tracking a golf ball. He was consented at length concerning risks and benefits of cataract surgery, after which he expressed a desire to proceed with surgery. 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 He was sent to [facility] who recommended going ahead with a single focus aspheric intraocular lens with a target of -1.00 diopters. OPERATIVE PROCEDURE: The patient was taken to OR #3 and placed under monitored anesthesia care. A surgical timeout was conducted, confirming correct patient, correct procedure, and correct surgical site. He was given topical anesthesia, and prepped and draped in the usual sterile fashion. The eye was entered at the 12- and 9-o'clock positions. Intracameral Shugarcaine was injected into the anterior chamber, followed by Viscoat. Because of the use of Flomax, a blue iris, and the possibility of intraocular floppy iris syndrome, a Malyugin ring was injected into the anterior chamber and engaged the pupil margin at 4 points to stablize the iris. A continuous-tear curvilinear capsulorrhexis was performed. The nucleus was hydrodissected and phacoemulsified. The cortex was evacuated using automated infusion and aspiration. Provisc was injected in the capsular bag and an 8.0-diopter intraocular aspherical lens was inserted into the bag. The Malyugin ring was then disengaged from the pupil margin and removed from the anterior chamber. Infusion and aspiration were used to evacuate the viscoelastic materials. The eye was inflated to physiologic pressure using balanced salt solution and found to be watertight. Approximately 0.25 mL of a mixture of triamcinolone and moxifloxacin was injected transsclerally into the vitreous in the inferotemporal quadrant. An additional 0.55 mL of a mixture of triamcinolone, moxifloxacin, and vancomycin was injected subconjunctivally in the superior quadrant for infection and inflammation prophylaxis. Wound integrity was checked with Weck-Mary sponges. Patient was taken from the operating room in good condition and given postoperative instructions. TD: 08/14/2020 09:29 HEAVENLY
[2020-08-14 10:39] VITALS: BP 119/51
--- OUTSIDE RECORDS SUMMARY | 2020-08-20 00:59 | EXTERNAL MEDICAL SUMMARY RPT | Continuity of Care Document ---
: Demographics Phone Unavailable Preferred Language Belarusian Marital Status Unknown Sikhism Affiliation Unknown Race Unknown Ethnic Group Unknown Author Organization [facility] Address [address] [place] [address] Phone Care Team Providers Name Role Phone LILLIANA HERNANDEZ Unavailable Unavailable Lilliana CHAN, Unavailable Unavailable Rhonda Vang Unavailable Unavailable Problems date description facility 2020-05-07 07:33 CHRONIC EMBOLISM AND THOMBOS UNSP [facility] DEEP VN UNSP LOW EXTRM 2020-05-07 07:33 LONG-TERM (CURRENT) USE OF [facility] ANTICOAGULANTS 2020-06-04 08:32 CHRONIC EMBOLISM AND THOMBOS UNSP [facility] DEEP VN UNSP LOW EXTRM 2020-06-04 08:32 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 2020-07-02 08:32 CHRONIC EMBOLISM AND THOMBOS UNSP [facility] DEEP VN UNSP LOW EXTRM 2020-07-02 08:32 LONG-TERM (CURRENT) USE OF [facility] ANTICOAGULANTS 2020-07-07 09:11 CHRONIC EMBOLISM AND THOMBOS UNSP [facility] DEEP VN UNSP LOW EXTRM 2020-07-07 09:11 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 2020-07-21 07:32 CHRONIC EMBOLISM AND THOMBOS UNSP [facility] DEEP VN UNSP LOW EXTRM 2020-07-21 07:32 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 2020-07-28 08:41 CHRONIC EMBOLISM AND THOMBOS UNSP [facility] DEEP VN UNSP LOW EXTRM 2020-07-28 08:41 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 2020-08-04 08:13 CHRONIC EMBOLISM AND THOMBOS UNSP [facility] DEEP VN UNSP LOW EXTRM 2020-08-04 08:13 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 2020-08-14 07:57 COMBINED FORMS OF AGE-RELATED [facility] CATARACT, RIGHT EYE 2020-08-14 10:30 COMBINED FORMS OF AGE-RELATED [facility] CATARACT, RIGHT EYE 2020-08-15 09:48 CHRONIC EMBOLISM AND THOMBOS UNSP [facility] DEEP VN UNSP LOW EXTRM 2020-08-15 09:48 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 Allergies date description facility No Known Drug Allergies [facility] NO KNOWN ALLERGIES [facility] Procedures date description facility 2020-06-04 00:00:00 [facility] date description [facility] date description facility 2020-07-02 00:00:00 [facility] date description facility 2020-07-02 [facility] date description facility 2020-07-08 00:00:00 [facility] date description [facility] 2020[facility] date description facility 2020-07-21 00:00:00 POC [facility] date description facility 2020-07-21 00:00:00 [facility] date description facility 2020-07-21 [facility] date description facility 2020-07-28 00:00:00 [facility]AG [facility] date description facility 2020-07-28 [facility] date description facility 2020-08-15 00:00:00 [facility] date description facility 2020-08-15 00:00[facility] Results test status date ordered by attending specimen gabriela e null F 2020-06-04 [email or web address] Rhonda Vang 2020-05-09 8 08:56:00 08:56:00 facility observation status value reference units lab abnor mal line notes range code [facility] F 2.5 0.8-1.2 H [facility] O ral Anticoag ulant Indicati on INR rang e Venous Thrombos is, P.E. 2.0 - 3.0 Mech anical Valve 2.5 - 3.5 test status date ordered by attending specimen gabriela e null F 2020-07-02 [email or web address] Rhonda Vang 2020-06-09 5 08:40:00 08:40:00 facility observation status value reference units lab abnor mal line notes range code [facility] F 4.0 0.8-1.2 H Y [facility] O ral Anticoag ulant Indicati on INR rang e Venous Thrombos is, P.E. 2.0 - 3.0 Mech anical Valve 2.5 - 3.5 test status date ordered by attending specimen gabriela e null F 2020-07-07 [email or web address] Rhonda Vang 2020-06-10 0 09:15:00 09:15:00 facility observation status value reference units lab abnor mal line notes range code [facility] F 2.2 0.8-1.2 H Y [facility] O ral Anticoag ulant Indicati on INR rang e Venous Thrombos is, P.E. 2.0 - 3.0 Mech anical Valve 2.5 - 3.5 test status date ordered by attending specimen gabriela e null F 2020-07-21 [email or web address] Rhonda Vang 2020-07-08 4 07:40:00 07:40:00 facility observation status value reference units lab abnor mal line notes range code [facility] F 3.5 0.8-1.2 H Y [facility] O ral Anticoag ulant Indicati on INR rang e Venous Thrombos is, P.E. 2.0 - 3.0 Mech anical Valve 2.5 - 3.5 test status date ordered by attending specimen gabriela e null F 2020-07-28 [email or web address] Rhonda Vang 2020-07-09 1 08:46:00 08:46:00 facility observation status value reference units lab abnor mal line notes range code [facility] F 3.6 0.8-1.2 H Y [facility] O ral Anticoag ulant Indicati on INR rang e Venous Thrombos is, P.E. 2.0 - [facility] - 3.5 test status date ordered by attending specimen gabriela e kellie Frausto 2020-08-04 [email or web address] Rhonda Vang 2020-07-09 8 08:23:00 08:23:00 facility observation status value reference units lab abnor mal line notes range code [facility] F 2.0 0.8-1.2 H Y [facility] O ral Anticoag ulant Indicati on INR rang e Venous Thrombos is, P.E. 2.0 - 3.0 [facility] anical Valve 2.5 - 3.5 test status date ordered by attending specimen gabriela e kellie Frausto 2020-08-07 [email or web address] Bernardo Soliz 2020-07 16:27:00 12:20:00 facility observation status value reference units lab abnor mal line notes range code [facility] F NEGATIVE unknown [facility] L See separate report - Report scanned to Patient' s EMR. Testing perform[facility] test status date ordered by attending specimen gabriela e kellie Frausto 2020-08-15 [email or web address] Rhonda Vang 8 09:54:00 09:54:00 facility observation status value reference units lab abnor mal line notes range code [facility] F 1.9 0.8-1.2 H Y [facility] O ral Anticoag ulant Indicati on INR rang e Venous Thrombos is, P.E. 2.0 - 3.0 [facility] anical Valve 2.5 - 3.5 test status date ordered by attending specimen gabriela e international_no unknown 2020-06-04 unknown unknown unkno wn rmalized_ratio_IN 00:00:00 R_ INR_in_Platelet_ unknown 2020-06-04 unknown unknown unkno wn poor_plasma_by_Co 00:00:00 agulation_assay international_no unknown 2020-07-02 unknown unknown unkno wn rmalized_ratio_IN 00:00:00 R_ INR_in_Platelet_ unknown 2020-07-02 unknown unknown unkno wn poor_plasma_by_Co 00:00:00 agulation_assay international_no unknown 2020-07-08 unknown unknown unkno wn rmalized_ratio_IN 00:00:00 R_ INR_in_Platelet_ unknown 2020-07-08 unknown unknown unkno wn poor_plasma_by_Co 00:00:00 agulation_assay international_no unknown 2020-07-21 unknown unknown unkno wn rmalized_ratio_IN 00:00:00 R_ INR_in_Platelet_ unknown 2020-07-21 unknown unknown unkno wn poor_plasma_by_Co 00:00:00 agulation_assay international_no unknown 2020-07-28 unknown unknown unkno wn rmalized_ratio_IN 00:00:00 R_ INR_in_Platelet_ unknown 2020-07-28 unknown unknown unkno wn poor_plasma_by_Co 00:00:00 agulation_assay international_no unknown 2020-08-05 unknown unknown unkno wn rmalized_ratio_IN 00:00:00 R_ INR_in_Platelet_ unknown 2020-08-05 unknown unknown unkno wn poor_plasma_by_Co 00:00:00 agulation_assay international_no unknown 2020-08-15 unknown unknown unkno wn rmalized_ratio_IN 00:00:00 R_ INR_in_Platelet_ unknown 2020-08-15 unknown unknown unkno wn poor_plasma_by_Co 00:00:00 agulation_assay facility observation status value reference units lab abnor mal line range code notes [facility] internationa unknown 2.5 unknown _309 unknown unknown [facility] l_normalized_ [facility] ratio_INR_ [facility] INR_in_Plate unknown 2.5 unknown _[id number] unknown unknown [facility] let_poor_plas -6 [facility] ma_by_Coagula tion_assay [facility] internationa unknown 4.0 unknown _309 unknown unknown [facility] l_normalized_ [facility] ratio_INR_ [facility] INR_in_Plate unknown 4.0 unknown _[id number] unknown unknown [facility] let_poor_plas -6 [facility] ma_by_Coagula tion_assay [facility] internationa unknown 2.2 unknown _309 unknown unknown [facility] l_normalized_ [facility] ratio_INR_ [facility] INR_in_Plate unknown 2.2 unknown _6301 unknown unknown [facility] let_poor_plas -6 [facility] ma_by_Coagula tion_assay [facility] internationa unknown 3.5 unknown _309 unknown unknown [facility] l_normalized_ [facility] ratio_INR_ [facility] INR_in_Plate unknown 3.5 unknown _6301 unknown unknown [facility] let_poor_plas -6 [facility] ma_by_Coagula tion_assay [facility] internationa unknown 3.6 unknown _309 unknown unknown [facility] l_normalized_ [facility] ratio_INR_ [facility] INR_in_Plate unknown 3.6 unknown _6301 unknown unknown Primary [facility] let_poor_plas -6 [facility] ma_by_Coagula tion_assay [facility] internationa unknown 2.0 unknown _309 unknown unknown [facility] l_normalized_ [facility] ratio_INR_ [facility] INR_in_Plate unknown 2.0 unknown _6301 unknown unknown [facility] let_poor_plas -6 [facility] ma_by_Coagula tion_assay [facility] internationa unknown 1.9 unknown _309 unknown unknown [facility] l_normalized_ [facility] ratio_INR_ [facility] INR_in_Plate unknown 1.9 unknown _6301 unknown unknown [facility] let_poor_plas -6 [facility] ma_by_Coagula tion_assay Social History date description facility [id number]
== END 2020-08-14 07:58 | disposition home or self-care (01) ==
LOC: SDS 07:57
PROVIDERS: ATTEND Ophthalmology
DX: H25.811 Combined forms of age-related cataract, right eye (principal); H21.81 Floppy iris syndrome; T44.6X5A Adverse effect of alpha-adrenoreceptor antagonists, initial encounter; I10 Essential (primary) hypertension; Z86.711 Personal history of pulmonary embolism; Z79.01 Long term (current) use of anticoagulants; R25.1 Tremor, unspecified; Z79.899 Other long term (current) drug therapy; N40.0 Benign prostatic hyperplasia without lower urinary tract symptoms; Z87.891 Personal history of nicotine dependence
CPT/HCPCS: 66982; A9270; J3490; J7120

== ENCOUNTER 2020-08-15 09:48 | Outpatient (CLI) | payer MEDICARE ==
--- OUTSIDE RECORDS SUMMARY | 2020-08-20 01:33 | EXTERNAL MEDICAL SUMMARY RPT | Continuity of Care Document ---
: Demographics Phone Unavailable Preferred Language Serbian Marital Status Unknown Amish Affiliation Unknown Race Unknown Ethnic Group Unknown Author Organization [place] Address [address] [place] [address] Phone Care Team Providers Name Role Phone LILLIANA HERNANDEZ Unavailable Unavailable Lilliana CHAN, Unavailable Unavailable Rhonda Vang Unavailable Unavailable Problems date description facility 2020-05-07 07:33 CHRONIC EMBOLISM AND THOMBOS UNSP [facility] DEEP VN UNSP LOW EXTRM 2020-05-07 07:33 PRISON (CURRENT) USE OF [facility] ANTICOAGULANTS 2020-06-04 08:32 CHRONIC EMBOLISM AND THOMBOS UNSP [facility] DEEP VN UNSP LOW EXTRM 2020-06-04 08:32 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 2020-07-02 08:32 CHRONIC EMBOLISM AND THOMBOS UNSP [facility] DEEP VN UNSP LOW EXTRM 2020-07-02 08:32 PRISON (CURRENT) USE OF [facility] ANTICOAGULANTS 2020-07-07 09:11 CHRONIC EMBOLISM AND THOMBOS UNSP [facility] DEEP VN UNSP LOW EXTRM 2020-07-07 09:11 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 2020-07-21 07:32 CHRONIC EMBOLISM AND THOMBOS UNSP [facility] DEEP VN UNSP LOW EXTRM 2020-07-21 07:32 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 2020-07-28 08:41 CHRONIC EMBOLISM AND THOMBOS UNSP [facility] DEEP VN UNSP LOW EXTRM 2020-07-28 08:41 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 2020-08-04 08:13 CHRONIC EMBOLISM AND THOMBOS UNSP [facility] DEEP VN UNSP LOW EXTRM 2020-08-04 08:13 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 2020-08-14 07:57 COMBINED FORMS OF AGE-RELATED [facility] CATARACT, RIGHT EYE 2020-08-14 10:30 COMBINED FORMS OF AGE-RELATED [facility] CATARACT, RIGHT EYE 2020-08-15 09:48 CHRONIC EMBOLISM AND THOMBOS UNSP [facility] DEEP VN UNSP LOW EXTRM 2020-08-15 09:48 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 Allergies date description facility No Known Drug Allergies [facility] NO KNOWN ALLERGIES [facility] Procedures date description facility 2020-06-04 00:00:00 [facility] date description [facility] date description facility 2020-07-02 00:00:00 [facility] date description facility 2020[facility]07[facility]02 [facility] date description facility 2020-07-08 00:00:00 [facility] date description [facility] 2020[facility] date description facility 2020-07-21 00:00:00 POC PROTHROMBIN TIME [facility] date description facility 2020-07-21 00:00:00 [facility] date description [facility] date description facility 2020-07-28 00:00:00 [facility]AG [facility] date description [facility] 2020[facility]07[facility] date description facility 2020-08-15 00:00:00 [facility] date description facility 2020-08-15 00:00[facility] Results test status date ordered by attending specimen gabriela e null F 2020-06-04 [email or web address] Rhonda Vang 2020-05-09 8 08:56:00 08:56:00 facility observation status value reference units lab abnor mal line notes range code [facility] F 2.5 0.8-1.2 H Y [facility] O ral Anticoag ulant Indicati on INR rang e Venous Thrombos is, P.E. 2.0 - 3.0 Mech anical Valve 2.5 - 3.5 test status date ordered by attending specimen gabriela e null F 2020-07-02 [email or web address] Rhonda Vang 2020-06-09 5 08:40:00 08:40:00 facility observation status value reference units lab abnor mal line notes range code [facility] F 4.0 0.8-1.2 H Y [facility] O ral Anticoag ulant Indicati on INR rang e Venous Thrombos is, P.E. 2.0 - 3.0 Mech anical Valve 2.5 - 3.5 test status date ordered by attending specimen gbariela e null F 2020-07-07 [email or web address] Rhonda Vang 2020-06-10 0 09:15:00 09:15:00 facility observation status value reference units lab abnor mal line notes range code [facility] F 2.2 0.8-1.2 H Y [facility] O ral Anticoag ulant Indicati on INR rang e Venous Thrombos is, P.E. 2.0 - 3.0 Mech anical Valve 2.5 - 3.5 test status date ordered by attending specimen gabriela e null F 2020-07-21 [email or web address] Rhonda Vang 2020-07-08 4 07:40:00 07:40:00 facility observation status value reference units lab abnor mal line notes range code [facility] F 3.5 0.8-1.2 H Y [facility] O ral Anticoag ulant Indicati on INR rang e Venous Thrombos is, P.E. 2.0 - 3.0 Mech anical Valve 2.5 - 3.5 test status date ordered by attending specimen gabriela e null F 2020-07-28 [email or web address] Rhonda Vang 2020-07-09 1 08:46:00 08:46:00 facility observation status value reference units lab abnor mal line notes range code [facility] F 3.6 0.8-1.2 H Y [facility] O ral Anticoag ulant Indicati on INR rang e Venous Thrombos is, P.E. 2.0 - 3.[facility] - 3.5 test status date ordered by attending specimen gabriela e kellie Frausto 2020-08-04 [email or web address] Rhonda Vang 2020-07-09 8 08:23:00 08:23:00 facility observation status value reference units lab abnor mal line notes range code [facility] F 2.0 0.8-1.2 H Y [facility] O ral Anticoag ulant Indicati on INR rang e Venous Thrombos is, P.E. 2.0 - 3.0 [facility] anical Valve 2.5 - 3.5 test status date ordered by attending specimen gabriela e kellie Frausto 2020-08-07 [email or web address] Bernardo Soliz 2020-07 16:27:00 12:20:00 facility observation status value reference units lab abnor mal line notes range code [facility] F NEGATIVE unknown [facility] L See separate report - Report scanned to Patient' s EMR. Testing perform[facility] d [facility] test status date ordered by attending specimen gabriela e kellie Frausto 2020-08-15 [email or web address] Rhonda Vang 8 09:54:00 09:54:00 facility observation status value reference units lab abnor mal line notes range code [facility] F 1.9 0.8-1.2 H Y [facility] O ral Anticoag ulant Indicati on INR rang e Venous Thrombos is, P.E. 2.0 - 3.0 [facility] anical Valve 2.5 - 3.5 test status [...] unknown _309 unknown unknown Primary Care l_normalized_ [facility] ratio_INR_ [facility] INR_in_Plate unknown 2.5 unknown _6301 unknown unknown Primary Care let_poor_plas -6 [facility] ma_by_Coagula tion_assay [facility] internationa unknown 4.0 unknown _309 unknown unknown [facility] Care l_normalized_ [facility] ratio_INR_ [facility] INR_in_Plate unknown 4.0 unknown _6301 unknown unknown Primary Care let_poor_plas -6 [facility] ma_by_Coagula tion_assay [facility] internationa unknown 2.2 unknown _309 unknown unknown Primary Care l_normalized_ [facility] ratio_INR_ [facility] INR_in_Plate unknown 2.2 unknown _6301 unknown unknown [facility] Care let_poor_plas -6 [facility] ma_by_Coagula tion_assay [facility] internationa unknown 3.5 unknown _309 unknown unknown [facility] l_normalized_ [facility] ratio_INR_ [facility] INR_in_Plate unknown 3.5 unknown _6301 unknown unknown Primary Care let_poor_plas -6 [facility] ma_by_Coagula tion_assay [facility] internationa unknown 3.6 unknown _309 unknown unknown Primary Care l_normalized_ [facility] ratio_INR_ [facility] INR_in_Plate unknown 3.6 unknown _6301 unknown unknown Primary Care let_poor_plas -6 [facility] ma_by_Coagula tion_assay [facility] internationa unknown 2.0 unknown _309 unknown unknown Primary Care l_normalized_ [facility] ratio_INR_ [facility] INR_in_Plate unknown 2.0 unknown _6301 unknown unknown Primary Care let_poor_plas -6 [facility] ma_by_Coagula tion_assay [facility] internationa unknown 1.9 unknown _309 unknown unknown Primary Care l_normalized_ [facility] ratio_INR_ [facility] INR_in_Plate unknown 1.9 unknown _6301 unknown unknown Primary Care let_poor_plas -6 [facility] ma_by_Coagula tion_assay Social History date description facility [id number]
== END 2020-08-15 09:49 | disposition home or self-care (01) ==
LOC: LAB.S 09:48
PROVIDERS: ATTEND Registered Nurse
DX: I82.509 Chronic embolism and thrombosis of unspecified deep veins of unspecified lower extremity (principal); Z79.01 Long term (current) use of anticoagulants
CPT/HCPCS: 85610

== ENCOUNTER 2020-08-26 08:00 | Outpatient (CLI) | payer MEDICARE | END 2020-08-26 23:59 | disposition home or self-care (01) | LOC: LAB.N 08:00 | PROVIDERS: ATTEND Physician Assistant | DX: Z79.01 Long term (current) use of anticoagulants (principal) ==

== ENCOUNTER 2020-09-02 08:00 | Outpatient (CLI) | payer MEDICARE | END 2020-09-02 23:59 | disposition home or self-care (01) | LOC: LAB.N 08:00 | PROVIDERS: ATTEND Physician Assistant | DX: Z79.01 Long term (current) use of anticoagulants (principal) ==

== ENCOUNTER 2020-09-09 08:00 | Outpatient (CLI) | payer MEDICARE | END 2020-09-09 23:59 | disposition home or self-care (01) | LOC: LAB.N 08:00 | PROVIDERS: ATTEND Physician Assistant | DX: Z79.01 Long term (current) use of anticoagulants (principal) ==

== ENCOUNTER 2020-09-16 08:00 | Outpatient (CLI) | payer MEDICARE | END 2020-09-16 23:59 | disposition home or self-care (01) | LOC: LAB.N 08:00 | PROVIDERS: ATTEND Physician Assistant | DX: Z79.01 Long term (current) use of anticoagulants (principal) ==

== ENCOUNTER 2020-09-26 12:39 | Outpatient (CLI) | payer MEDICARE | END 2020-09-26 12:40 | disposition home or self-care (01) | LOC: COV 12:39 | PROVIDERS: ATTEND Ophthalmology | DX: Z01.812 Encounter for preprocedural laboratory examination (principal); H25.812 Combined forms of age-related cataract, left eye; Z20.822 Contact with and (suspected) exposure to COVID-19 ==

== ENCOUNTER 2020-10-02 08:09 | Day surgery (SDC) | payer MEDICARE ==
[~2020-10-02 08:09] MED LIST changes: -BRIMONIDINE 0.2% OPHTH DROPS 5 ML ONE; -BSS/LIDOCAINE/EPINEPHRINE 1 ML SYRINGE ONE; -EPINEPHrine 1 MG/ML AMP ONE; -TIMOLOL 0.5% OPHTH DROPS ONE; -TRIAMCIN/MOXIFLOX OPHTHALMIC 0.6 ML VIAL IO ONE; -VANCOMYCIN OPHTHALMI 8MG/0.8ML 8 MG/0.8 ML SYRINGE IO ONE
[2020-10-02] MEDS ORDERED: LACTATED RINGERS 500 ML IV ONE (08:41)
[2020-10-02] MEDS ORDERED: BRIMONIDINE 0.2% OPHTH DROPS 5 ML ONE (09:02)
[2020-10-02] MEDS ORDERED: TIMOLOL 0.5% OPHTH DROPS ONE (09:02)
[2020-10-02] MEDS ORDERED: TRIAMCIN/MOXIFLOX OPHTHALMIC 0.6 ML VIAL IO ONE ×2 (09:02→09:29)
[2020-10-02] MEDS ORDERED: VANCOMYCIN OPHTHALMI 8MG/0.8ML 8 MG/0.8 ML SYRINGE IO ONE ×2 (09:02→09:29)
[2020-10-02] MEDS ORDERED: BSS/LIDOCAINE/EPINEPHRINE 1 ML SYRINGE ONE (09:02)
[2020-10-02] MEDS ORDERED: EPINEPHrine 1 MG/ML AMP ONE (09:02)
--- NOTE | 2020-10-02 09:14 | ANESTHESIA ---
Pre-Anesthesia VS, & Labs - Diagnosis L cataract - Procedure L PhacoIOL Vital Signs: Temp Pulse Resp BP Pulse Ox 36.1 C L 76 16 155/76 H 98 10/02/20 08:20 10/02/20 08:20 10/02/20 08:20 10/02/20 08:20 10/02/20 08:20 Height: 5 ft 9 in Weight (kg): 77 kg Body Mass Index: 25.0 BMI Classification: Overweight - NPO >8 hours Home Medications and Allergies Atorvastatin Calcium 40 mg PO DAILY 08/13/20 Cholecalciferol [Vitamin D3] 6,000 units ORAL DAILY 08/13/20 Lisinopril/Hydrochlorothiazide [Zestoretic 20-25 mg Tablet] 0.5 each PO DAILY 08/13/20 Tamsulosin [Flomax] 0.4 mg PO DAILY 08/13/20 Warfarin [Coumadin] 5 mg PO DAILY 08/13/20 Allergies/Adverse Reactions: Allergies Allergy/AdvReac Type Severity Reaction Status Date / Time No Known Drug Allergies Allergy Verified 08/13/20 14:58 Anes History & Medical History - Anesthetic History Family history of Anesthesia Complications: Denies Family history of Malignant Hyperthermia: Denies - Medical History Cardiovascular: reports: Hypertension, High cholesterol Urinary: reports: Benign prostate hypertrophy - Surgical History Eyes Ears Nose Throat (EENT): reports: Cataracts Exam Dental: WNL Mouth Openin Fingerbreadth Mallampati classification: I Thyromental Distance: 4-6 cm Plan Anesthesia Type: MAC Consent for Procedure(s) Verified and Reviewed: Yes Code Status: Attempt Resuscitation ASA classification: 2-Mild systemic disease Is this case an emergency?: No
[2020-10-02] MEDS ORDERED: MIDAZOLAM 2 MG/2 ML VIAL ONE (09:19)
[2020-10-02] MEDS ORDERED: CHONDR SULF/HYALURONATE SYRINGE IO ONE (09:28)
[2020-10-02] MEDS ORDERED: TIMOLOL 0.5% OPHTH DROPS OPTH ONE (09:28)
[2020-10-02] MEDS ORDERED: EPINEPHrine 1 MG/ML AMP IR ONE (09:28)
[2020-10-02] MEDS ORDERED: BRIMONIDINE 0.2% OPHTH DROPS 5 ML OPTH ONE (09:28)
[2020-10-02] MEDS ORDERED: BSS/LIDOCAINE/EPINEPHRINE 1 ML SYRINGE IO ONE (09:29)
[2020-10-02] MEDS ORDERED: PROPARACAINE 0.5% OPHTH DROPS 15 ML EACHEYE ONE (09:29)
[2020-10-02] MEDS ORDERED: ACETYLCHOLINE 20 MG/2 ML KIT IO ONE ×2 (09:53→10:03)
[2020-10-02] MEDS ORDERED: LACTATED RINGERS 400 ML IV ONE (10:00)
[2020-10-02 10:04] VITALS: BP 108/62
--- NOTE | 2020-10-02 10:07 | ANESTHESIA POST OP EVALUATION ---
Anesthesia Post Eval - Post Anesthesia Eval Vitals: Last Vital Signs Temp 36.3 C L 10/02/20 10:01 Pulse 51 L 10/02/20 10:01 Resp 14 10/02/20 10:01 BP 108/62 10/02/20 10:01 Pulse Ox 100 10/02/20 10:01 CV Function Including HR & BP: positive: Stable Pain Control: positive: Satisfactory Nausea & Vomiting: positive: Negative Mental Status: positive: Baseline Respiratory Status: Airway Patent Hydration Status: Satisfactory Anesthesia Complications: positive: None
--- NOTE | 2020-10-02 10:29 | OPERATIVE REPORT ---
DATE OF SERVICE: 10/02/2020 Physician: Bernardo Soliz MD PREOPERATIVE DIAGNOSIS: Complex, visually significant cataract, left eye. Complex due to the use of Flomax causing Intraoperative Floppy Iris Syndrome requiring use of a Malyugin ring to stabilize the iris. Cataract surgery was performed on the right eye on 08/14/2020. POSTOPERATIVE DIAGNOSIS: Complex, visually significant cataract, left eye. Complex due to the use of Flomax causing Intraoperative Floppy Iris Syndrome requiring use of a Malyugin ring to stabilize the iris. Cataract surgery was performed on the right eye on 08/14/2020. PROCEDURE: Phacoemulsification with posterior chamber intraocular lens implant, left eye. SURGEON: Bernardo Soliz MD ANESTHESIA: Monitored anesthesia care. COMPLICATIONS: None. OPERATIVE INDICATIONS: This is a 75-year-old man with progressive vision loss in the left eye due to 2+ nuclear sclerotic, 1-2+ posterior subcapsular, and vacuolar cataract. Best corrected visual acuity was 20/400 with glare to count fingers vision at 6 feet. 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 He was consented at length concerning risks and benefits of cataract surgery, after which she expressed a desire to proceed with surgery. OPERATIVE PROCEDURE: The patient was taken to OR #3 and placed under monitored anesthesia care. A surgical timeout was conducted, confirming correct patient, correct procedure, and correct surgical site. He was given topical anesthesia, and prepped and draped in the usual sterile fashion. The eye was entered at the 6 and 3 o'clock positions. An Intracameral Shugarcaine was injected into the anterior chamber, followed by Viscoat. A Malyugin ring was then injected into the anterior chamber and engaged the pupil at 4 points and used due to a light colored iris and use of Flomax. A continuous-tear curvilinear capsulorrhexis was performed. The nucleus was hydrodissected and phacoemulsified. The cortex was evacuated using automated infusion and aspiration. Provisc was injected in the capsular bag and a 6.0 diopter intraocular lens inserted in the bag. The Malyugin ring was then removed from the anterior chamber. Infusion and aspiration were used to evacuate the viscoelastic materials. The eye was inflated to physiologic pressure using balanced salt solution and found to be watertight. Approximately 0.25 mL of a mixture of triamcinolone and moxifloxacin was injected transsclerally into the vitreous in the inferotemporal quadrant. An additional 0.55 mL of a mixture of triamcinolone and moxifloxacin was injected subconjunctivally in the superior quadrant for infection and inflammation prophylaxis. The IOL was prolapsing out of the bag and through the iris so more fluid was injected into the eye; however, this caused the iris to prolapse into the main wound. A cyclodialysis spatula was used to remove the iris from the main wound and a 10-0 nylon suture was placed across the wound to keep it from allowing the iris out of the wound. By this point, the wound was now prolapsing out of the paracentesis wound, so again a cyclodialysis spatula was used to get the iris out of the paracentesis wound and then the eye was filled with Miochol to bring the pupil down. Once the pupil had come down with Miochol the iris was again in the main wound and so a cyclodialysis spatula was used to pull the iris out of the main wound. The iris finally rounded up and was no longer in either the paracentesis or main wound. Wound integrity was checked with Weck-Mary sponges and the patient was taken from the operating room in good condition and given postoperative instructions. TD: 10/02/2020 10:20 HEAVENLY
== END 2020-10-02 08:10 | disposition home or self-care (01) ==
LOC: SDS 08:09
PROVIDERS: ATTEND Ophthalmology
DX: H25.812 Combined forms of age-related cataract, left eye (principal); H21.81 Floppy iris syndrome; T44.6X5A Adverse effect of alpha-adrenoreceptor antagonists, initial encounter; I10 Essential (primary) hypertension; N40.0 Benign prostatic hyperplasia without lower urinary tract symptoms; E78.00 Pure hypercholesterolemia, unspecified; Z79.899 Other long term (current) drug therapy; Z87.891 Personal history of nicotine dependence
CPT/HCPCS: 66982; A9270; J3490; J7120

== ENCOUNTER 2020-10-07 08:18 | Outpatient (CLI) | payer MEDICARE | END 2020-10-07 08:19 | disposition home or self-care (01) | LOC: LAB.S 08:18 | PROVIDERS: ATTEND Registered Nurse | DX: I82.509 Chronic embolism and thrombosis of unspecified deep veins of unspecified lower extremity (principal); Z79.01 Long term (current) use of anticoagulants | CPT/HCPCS: 85610 ==

== ENCOUNTER 2020-10-14 08:21 | Outpatient (CLI) | payer MEDICARE | END 2020-10-14 08:22 | disposition home or self-care (01) | LOC: LAB.S 08:21 | PROVIDERS: ATTEND Registered Nurse | DX: I82.509 Chronic embolism and thrombosis of unspecified deep veins of unspecified lower extremity (principal); Z79.01 Long term (current) use of anticoagulants | CPT/HCPCS: 85610 ==

== ENCOUNTER 2020-10-21 08:51 | Outpatient (CLI) | payer MEDICARE | END 2020-10-21 08:52 | disposition home or self-care (01) | LOC: LAB.S 08:51 | PROVIDERS: ATTEND Registered Nurse | DX: I82.509 Chronic embolism and thrombosis of unspecified deep veins of unspecified lower extremity (principal); Z79.01 Long term (current) use of anticoagulants | CPT/HCPCS: 36415; 80053; 83036; 85025; 85610 ==

== ENCOUNTER 2020-11-04 10:36 | Outpatient (CLI) | payer MEDICARE | END 2020-11-04 10:37 | disposition home or self-care (01) | LOC: LAB.S 10:36 | PROVIDERS: ATTEND Registered Nurse | DX: I82.509 Chronic embolism and thrombosis of unspecified deep veins of unspecified lower extremity (principal); Z79.01 Long term (current) use of anticoagulants | CPT/HCPCS: 85610 ==

== ENCOUNTER 2020-11-18 12:13 | Outpatient (CLI) | payer MEDICARE | END 2020-11-18 12:14 | disposition home or self-care (01) | LOC: LAB.S 12:13 | PROVIDERS: ATTEND Registered Nurse | DX: I82.509 Chronic embolism and thrombosis of unspecified deep veins of unspecified lower extremity (principal); Z79.01 Long term (current) use of anticoagulants | CPT/HCPCS: 85610 ==

== ENCOUNTER 2021-01-14 09:54 | Outpatient (CLI) | payer MEDICARE | END 2021-01-14 09:55 | disposition home or self-care (01) | LOC: LAB.S 09:54 | PROVIDERS: ATTEND Registered Nurse | DX: Z79.01 Long term (current) use of anticoagulants (principal); I82.509 Chronic embolism and thrombosis of unspecified deep veins of unspecified lower extremity; Z53.9 Procedure and treatment not carried out, unspecified reason ==

== ENCOUNTER 2021-03-12 19:22 | Outpatient (CLI) | payer MEDICARE ==
--- NOTE | 2021-03-13 09:40 | Ultrasound Report ---
PROCEDURE: Pelvic Limited or F/U INDICATIONS: INGUINAL PAIN TECHNIQUE: Real-time transabdominal scanning was performed of the inguinal region, with image documentation. COMPARISON: None. FINDINGS: Right inguinal region area of pain was imaged at rest and during Valsalva maneuver. At rest, the ingu inal region is normal. During Valsalva maneuver, there is protrusion of fat and fluid into the right inguinal canal with a neck measuring about 1.6 cm in diameter. No visible herniated bowel. IMPRESSION: 1. Reducible fat-containing right inguinal hernia. Reviewed by: Maty Germain MD on 03/13/2021 9:39 AM PDT Approved by: Maty Germain MD on 03/13/2021 9:39 AM PDT Station ID: [id number]
== END 2021-03-12 19:23 | disposition home or self-care (01) ==
LOC: DI 19:22
PROVIDERS: ATTEND Physician Assistant
DX: K40.90 Unilateral inguinal hernia, without obstruction or gangrene, not specified as recurrent (principal)

== ENCOUNTER 2021-04-23 13:47 | Outpatient (CLI) | payer MEDICARE | END 2021-04-23 13:48 | disposition home or self-care (01) | LOC: RT 13:47 | PROVIDERS: ATTEND Internal Medicine Cardiovascular Disease | DX: I48.91 Unspecified atrial fibrillation (principal) | CPT/HCPCS: 93005 ==

== ENCOUNTER 2021-06-19 10:17 | Outpatient (CLI) | payer MEDICARE ==
[2021-06-19 15:47] LABS: CREATININE 0.8 mg/dL (0.6-1.2)
== END 2021-06-19 10:18 | disposition home or self-care (01) ==
LOC: LAB.S 10:17
PROVIDERS: ATTEND Internal Medicine Cardiovascular Disease
DX: I48.0 Paroxysmal atrial fibrillation (principal)
CPT/HCPCS: 36415; 82565

== ENCOUNTER 2021-07-15 09:40 | Day surgery (SDC) | payer MEDICARE ==
[2021-07-15] MEDS ORDERED: CEFAZOLIN SODIUM IN 0.9 % NACL 2 GM/100 ML BAG IV ONE (10:07)
[2021-07-15] MEDS ORDERED: BUPIVACAINE 0.25% PF 10 ML VIAL ONE (10:17)
[2021-07-15] MEDS ORDERED: LACTATED RINGERS 1,000 ML IV ONE (10:46)
--- NOTE | 2021-07-15 11:02 | ANESTHESIA ---
Pre-Anesthesia VS, & Labs - Diagnosis R inguinal hernia - Procedure R inguinal hernia repair Vital Signs: Temp Pulse Resp BP Pulse Ox 36.5 C 68 13 158/78 H 97 07/15/21 10:36 07/15/21 10:36 07/15/21 10:36 07/15/21 10:36 07/15/21 10:36 Height: 5 ft 9 in Weight (kg): 77 kg Body Mass Index: 25.0 BMI Classification: Overweight - NPO >8 hours Home Medications and Allergies Home Medications: Ambulatory Orders Rivaroxaban [Xarelto] 20 mg PO DAILY 07/10/21 Atorvastatin Calcium 40 mg PO DAILY 08/13/20 Cholecalciferol [Vitamin D3] 6,000 units ORAL DAILY 08/13/20 Lisinopril/Hydrochlorothiazide [Zestoretic 20-25 mg Tablet] 0.5 each PO DAILY 08/13/20 Tamsulosin [Flomax] 0.4 mg PO DAILY 08/13/20 Rivaroxaban [Xarelto] 20 mg PO DAILY 07/10/21 Allergies/Adverse Reactions: Allergies Allergy/AdvReac Type Severity Reaction Status Date / Time No Known Drug Allergies Allergy Verified 08/13/20 14:58 Anes History & Medical History - Anesthetic History Anesthesia Complications: reports: No previous complications Family history of Anesthesia Complications: Denies Family history of Malignant Hyperthermia: Denies - Medical History Cardiovascular: reports: Hypertension, Deep vein thrombosis, Pulmonary embolism Pulmonary: reports: Pneumonia Gastrointestinal: reports: None Urinary: reports: Benign prostate hypertrophy Musculoskeletal: reports: Chronic back pain Endocrine/Autoimmune: reports: None Skin: reports: Eczema - Surgical History General: reports: Other Eyes Ears Nose Throat (EENT): reports: Cataracts Exam General: Alert, Oriented x3, Cooperative Dental: WNL Mouth Openin Fingerbreadth Neck Mobility: Normal Mallampati classification: I Thyromental Distance: 4-6 cm Respiratory: Lungs clear Cardiovascular: Regular rate Plan Anesthesia Type: General (GETA as backup), Total IV Consent for Procedure(s) Verified and Reviewed: Yes Code Status: Attempt Resuscitation ASA classification: 2-Mild systemic disease Is this case an emergency?: No
[2021-07-15] MEDS ORDERED: MIDAZOLAM 2 MG/2 ML VIAL ONE (11:14)
[2021-07-15] MEDS ORDERED: fentaNYL 100 MCG/2 ML VIAL ONE (11:14)
[2021-07-15] MEDS ORDERED: LIDOCAINE-MPF 2% 5 ML VIAL ONE (11:15)
[2021-07-15] MEDS ORDERED: PROPOFOL 500 MG/50 ML 500 MG/50 ML VIAL ONE (11:15)
--- NOTE | 2021-07-15 12:23 | HISTORY & PHYSICAL EXAMINATION ---
Chief Complaint - Chief Complaint Chief Complaint: right groin bulge History of Present Illness - History Obtained From Records Reviewed: yes History obtained from: pt Exam Limitations: none - History of Present Illness HPI Comment/Other: right inguinal hernia. getting worse History - Past Medical History Cardiovascular: reports: Hypertension, Deep vein thrombosis, Pulmonary embolism Respiratory: reports: Pneumonia Endocrine/Autoimmune: reports: None GI: reports: None : reports: Benign prostate hypertrophy HEENT: reports: Chronic vision loss, Chronic hearing loss Psych: reports: None Musculoskeletal: reports: Chronic back pain Derm: reports: Eczema MRSA Hx?: No - Past Surgical History General: reports: Other HEENT: reports: Cataracts Meds/Allgy - Home Medications Home Medications: Ambulatory Orders Medication Instructions Recorded Confirmed Atorvastatin Calcium 40 mg PO DAILY 08/13/20 07/15/21 Cholecalciferol [Vitamin D3] 6,000 units ORAL DAILY 08/13/20 07/15/21 Lisinopril/Hydrochlorothiazide 0.5 each PO DAILY 08/13/20 07/15/21 [Zestoretic 20-25 mg Tablet] Tamsulosin [Flomax] 0.4 mg PO DAILY 08/13/20 07/15/21 Rivaroxaban [Xarelto] 20 mg PO DAILY 07/10/21 07/15/21 - Allergies Allergies/Adverse Reactions: Allergies Allergy/AdvReac Type Severity Reaction Status Date / Time No Known Drug Allergies Allergy Verified 08/13/20 14:58 Review of Systems - Other Findings Other Findings: 10 pt ros as above otherwise unremarkable Exam - Vital Signs Reviewed Vital Signs: Yes Vital Signs: Vital Signs x48h Temp Pulse Resp BP Pulse Ox 07/15/21 10:36 36.5 C 68 13 158/78 H 97 - Physical Exam General Appearance: positive: No acute distress, Alert Eyes Bilateral: positive: PERRL, EOMI ENT: positive: No signs of dehydration Neck: positive: No JVD Respiratory: positive: Breath sounds nml Cardiovascular: positive: Regular rate & rhythm Abdomen: positive: Other (right inguinal hernia present) Neurologic/Psychiatric: positive: Oriented x3 Conclusion/Plan - Problem List (1) Inguinal hernia Conclusion/Plan: plan open right inguinal hernia repair with mesh. parq held and consent obtained
[2021-07-15] MEDS ORDERED: BUPIVACAINE 0.25% PF 30 ML VIAL SUBQ ONE (12:26)
[2021-07-15] MEDS ORDERED: LIDOCAINE 1% 50 ML MDV SUBQ ONE (12:33)
[2021-07-15] MEDS ORDERED: LIDOCAINE 1% 50 ML MDV ONE (12:38)
[2021-07-15] MEDS ORDERED: ACETAMINOPHEN 1,000 MG/100 ML 100 ML IV ONE (12:39)
[2021-07-15] MEDS ORDERED: PROPOFOL 200 MG/20 ML VIAL IVP ONE (13:23)
[2021-07-15] MEDS ORDERED: LACTATED RINGERS 200 ML IV ONE (13:51)
[2021-07-15] MEDS ORDERED: HYDROcod/ACETAM 5/325 MG TABLET PO PRN (14:03)
--- NOTE | 2021-07-15 14:21 | OPERATIVE REPORT ---
Operative Report - General Procedure Date: 07/15/21 Planned Procedure: open right inguinal hernia repair with mesh Pre-Op Diagnosis: right inguinal hernia Procedure Performed: open right inguinal hernia repair Post Op Diagnosis: slider type hernia with bladder - Procedure Note Primary Surgeon: grant godinez Anesthesia Technique: Local, MAC Pathology: not sent Estimated Blood Loss (mL): 0 Indications: painful hernia bulge Findings: as above Complications: branching ilioinguinal nerve removed - Other Other Information/Narrative: Patient was properly identified brought to the operating room and placed in supine position. Sequential compression devices were placed. Monitored anesthesia care and sedation was given. He was prepped and draped in a sterile fashion and given preoperative antibiotics. Local anesthetic was given throughout the procedure. A 5 cm incision was made in the direction of Meliton's lines just cephalad of the pubic tubercle. Dissection proceeded with cutting current cautery. The superficial epigastric vein was identified clamped divided and tied with 3-0 Vicryl. Dissection proceeded down to the aponeurosis. The aponeurosis was opened in the direction of its fibers and extended to the external ring. Cord structures were mobilized and brought up. The nerves were carefully protected and preserved. The ilioinguinal nerve was removed back to musculature due to significant branching. Cord structures were mobilized and brought up. An indirect inguinal hernia was present. The hernia sac was opened. He had a slider type hernia with bladder. The bladder was carefully reduced and hernia sac closed from the inside with 2 0 silk pursestring. Preperitoneal fat was removed. The base was tied with 2 O vicryl. Polypropylene mesh was cut to size and with tails. The mesh was secured with multiple interrupted 0 Ethibond sutures. She was placed along the pubic tubercle, Go's ligament area and along the shelving border of Poupart's ligament. Sutures were placed medially along the abdominal wall musculature and internal oblique. The medial tail of the mesh was secured to the shelving border of Poupart's ligament with 3 interrupted 0 ethibond sutures recreating the internal ring of appropriate size. An additional suture was placed in the crotch of the mesh recreating an internal ring of appropriate size. Aponeurosis was closed with a running 2-0 Vicryl suture. The opposite was closed with interrupted 3-0 Vicryl suture. Buried interrupted subdermal 3-0 Vicryl sutures were then placed. And was closed with a running 4-0 Monocryl subcuticular suture. Dressing was applied. Patient was awakened and brought to recovery in good condition.
[2021-07-15 14:22] VITALS: BP 118/61
--- NOTE | 2021-07-15 15:59 | ANESTHESIA POST OP EVALUATION ---
Anesthesia Post Eval - Post Anesthesia Eval Vitals: Last Vital Signs Temp 36.8 C 07/15/21 14:21 Pulse 60 07/15/21 14:21 Resp 16 07/15/21 14:21 BP 118/61 07/15/21 14:21 Pulse Ox 97 07/15/21 14:21 CV Function Including HR & BP: Stable Pain Control: Satisfactory Nausea & Vomiting: Negative Mental Status: Baseline Respiratory Status: Airway Patent Hydration Status: Satisfactory Anesthesia Complications: None
== END 2021-07-15 09:41 | disposition home or self-care (01) ==
LOC: SDS 09:40
PROVIDERS: ATTEND Surgery
DX: K40.90 Unilateral inguinal hernia, without obstruction or gangrene, not specified as recurrent (principal); N40.0 Benign prostatic hyperplasia without lower urinary tract symptoms; Z86.718 Personal history of other venous thrombosis and embolism; Z86.711 Personal history of pulmonary embolism
CPT/HCPCS: 49525; C1781; J0131; J0690; J7120

== ENCOUNTER 2021-10-27 08:49 | Outpatient (CLI) | payer MEDICARE ==
[2021-10-27 14:56] LABS: BASOPHILS % (AUTO) 0.3 %; EOSINOPHILS # (AUTO) 0.3 10^3/uL (0.0-0.7); EOSINOPHILS % (AUTO) 2.9 %; HCT - HEMATOCRIT 43.8 % (42.0-52.0); HGB - HEMOGLOBIN 14.7 g/dL (14.0-18.0); LYMPHOCYTES % (AUTO) 43.1 %; MEAN CORPUSCULAR HEMOGLOBIN 31.5 pg (27.0-31.0); MEAN CORPUSCULAR HGB CONC 33.6 g/dL (32.0-36.0); MEAN CORPUSCULAR VOLUME 93.8 fL (80.0-94.0); MEAN PLATELET VOLUME 10.5 fL (7.4-11.4); MONOCYTES # (AUTO) 0.5 10^3/uL (0.0-1.0); NEUTROPHILS # (AUTO) 5.7 10^3/uL (1.5-6.6); NEUTROPHILS % (AUTO) 49.5 %; PLT - PLATELET COUNT 149 10^3/uL (130-450); RED BLOOD COUNT 4.67 10^6/uL (4.70-6.10); WHITE BLOOD COUNT 11.6 x10^3/uL (4.8-10.8)
[2021-10-27 15:27] LABS: CHOL/HDL RATIO 2.4 (<5.0); CHOLESTEROL 193 mg/dL; HDL CHOLESTEROL 79 mg/dL; LDL CHOLESTEROL,CALCULATED 95 mg/dL; LDL/HDL RATIO 1.2 (<3.6); TRIGLYCERIDES 96 mg/dL; VLDL CHOLESTEROL 19 mg/dL
== END 2021-10-27 08:50 | disposition home or self-care (01) ==
LOC: LAB.S 08:49
PROVIDERS: ATTEND Internal Medicine
DX: E78.5 Hyperlipidemia, unspecified (principal); I10 Essential (primary) hypertension; Z12.5 Encounter for screening for malignant neoplasm of prostate
CPT/HCPCS: 36415; 80061; 85025; G0103; 83721; 84153

== ENCOUNTER 2022-10-15 13:36 | Outpatient (CLI) | payer MEDICARE | END 2022-10-15 13:37 | disposition critical access hospital (66) | LOC: EMS 13:36 | DX: I48.91 Unspecified atrial fibrillation (principal); R42 Dizziness and giddiness | CPT/HCPCS: A0425; A0427 ==

== ENCOUNTER 2022-10-15 14:09 | Emergency (ER) | payer MEDICARE ==
[2022-10-15] MEDS ORDERED: diltiaZEM INJ 5 MG/ML VIAL IVP STA (14:16)
--- NOTE | 2022-10-15 14:21 | ED Physician Documentation ---
PD HPI CHEST PAIN - Stated complaint Stated Complaint: AFIB - History obtained from History obtained from: Patient, EMS - Additional information Additional information: 77-year-old gentleman with history of paroxysmal atrial fibrillation, per him he had a Zio patch last year showing that he was in it about 6% of the time. He is anticoagulated on Xarelto. Not usually on any rate control agents or antiarrhythmics. Today at around 1045 he was walking with his and started to feel near syncopal. There was no associated chest pain or trouble breathing. He went to the walk-in clinic where he was noted to be in A-fib with RVR with soft blood pressures in the range of 95 systolic and heart rates in the 140s. He was referred here for further evaluation and treatment. He denies any symptoms right now. PD PAST MEDICAL HISTORY - Past Medical History Cardiovascular: Hypertension, Deep vein thrombosis, Pulmonary embolism Respiratory: Pneumonia Endocrine/Autoimmune: None GI: None : Benign prostate hypertrophy HEENT: Chronic vision loss, Chronic hearing loss Psych: None Musculoskeletal: Chronic back pain Derm: Eczema - Past Surgical History General: Other HEENT: Cataracts - Present Medications Home Medications: Ambulatory Orders Medication Instructions Recorded Confirmed Atorvastatin Calcium 40 mg PO DAILY 08/13/20 07/15/21 Cholecalciferol [Vitamin D3] 6,000 units ORAL DAILY 08/13/20 07/15/21 Lisinopril/Hydrochlorothiazide 0.5 each PO DAILY 08/13/20 07/15/21 [Zestoretic 20-25 mg Tablet] Tamsulosin [Flomax] 0.4 mg PO DAILY 08/13/20 07/15/21 Rivaroxaban [Xarelto] 20 mg PO DAILY 07/10/21 07/15/21 HYDROcod/ACETAM 5/325 [[place] 5/325] 1 each PO Q6H PRN #30 tablet 07/15/21 - Allergies Allergies/Adverse Reactions: Allergies Allergy/AdvReac Type Severity Reaction Status Date / Time No Known Drug Allergies Allergy Verified 08/13/20 14:58 PD ED PE NORMAL - Vitals Vital signs reviewed: Yes - General General: Alert and oriented X 3, No acute distress - HEENT HEENT: PERRL, EOMI - Neck Neck: Supple, no meningeal sign, No bony TTP - Cardiac Cardiac: Other (Rapid and irregular without murmur) - Respiratory Respiratory: No respiratory distress, Clear bilaterally - Abdomen Abdomen: Non tender - Extremities Extremities: No edema, No calf tenderness / cord - Neuro Neuro: Alert and oriented X 3, Normal speech Eye Opening: Spontaneous Motor: Obeys Commands Verbal: Oriented GCS Score: 15 Results - Vitals Vitals: Vital Signs - 24 hr 10/15/22 10/15/22 10/15/22 14:28 15:06 15:30 Temperature 36.6 C Heart Rate 135 H 114 H 122 H Respiratory 16 16 14 Rate Blood Pressure 151/80 H 103/92 H 110/72 O2 Saturation 100 100 100 10/15/22 10/15/22 10/15/22 15:35 15:40 15:42 Temperature Heart Rate 102 H 60 62 Respiratory 21 18 23 Rate Blood Pressure 102/55 L 86/52 L 91/56 L O2 Saturation 98 99 100 10/15/22 10/15/22 10/15/22 15:45 15:52 16:34 Temperature Heart Rate 62 68 54 L Respiratory 17 22 20 Rate Blood Pressure 88/55 L 100/57 L O2 Saturation 99 100 Oxygen O2 Source Room air - EKG (time done) 1418 EKG releavant findings:: EKG personally interpreted by author of this note. Relevant findings are: Rate: Rate (enter#) (125) Rhythm: Atrial fibrillation [place]: Normal QRS: Low voltage Ischemia: Normal ST segments. No: ST elevation c/w ischemia, ST depression - Labs Labs: Laboratory Tests 10/15/22 10/15/22 10/15/22 14:23 14:23 14:23 WBC 9.2 RBC 4.63 L Hgb 14.5 Hct 42.7 MCV 92.2 MCH 31.3 H MCHC 34.0 RDW 12.0 Plt Count 150 MPV 10.0 Neut # (Auto) 4.9 Lymph # (Auto) 3.7 H [place] # (Auto) 0.5 Eos # (Auto) 0.2 Baso # (Auto) 0.0 Absolute Nucleated RBC 0.00 Nucleated RBC % 0.0 Sodium 141 Potassium 3.9 Chloride 107 Carbon Dioxide 27 Anion Gap 7.0 BUN 18 Creatinine 0.9 Estimated GFR (MDRD) 81 L Glucose 119 H Calcium 8.9 Magnesium 1.7 TSH 3.77 Procedures - Procedural sedation Sedation prep: Informed consent, Time out completed, PE performed, ASA 2 - mild disease Sedation Medications: propofol (60 then 40mg IVP) Mallampati classification: I Patient status during sedation: Responds to tactile Sedation recovery: Recovered uneventfully Time in sedation (Minutes): 12 - Cardioversion - Major 1 Time of attempt: 13:30 Indication: Tachyarrhythmia Risks, benefits, alternatives explained to: Pt CS via: AP approach Sync: Biphasic (120j) Post cardioversion rhythm: NSR Performed by: ED MD 2/3 Time of attempt: 13:35 Indication: Tachyarrhythmia CS via: AP approach Sync: 150j Post cardioversion rhythm: NSR Performed by: ED PD Medical Decision Making - ED course Complexity details: reviewed results (CBC reviewed and normal. BMP reviewed and normal with the exception of low normal magnesium, very mild hyperglycemia. TSH reviewed and normal.) ED course: 77-year-old gentleman with symptomatic atrial fibrillation causing near syncope. He is therapeutically anticoagulated so reasonable to offer him a trial of cardioversion. He was cardioverted 3 times, after each cardioversion he went into normal sinus rhythm but it was fleeting lasting maybe 30 seconds. After the third cardioversion it seemed more persistent to be in sinus rhythm. Magnesium was repleted IV for low normal magnesium on labs. Departure - Departure Disposition: 01 Home, Self Care Clinical Impression: Atrial fibrillation Qualifiers: Atrial fibrillation type: paroxysmal Qualified Code(s): I48.0 - Paroxysmal atri al fibrillation Condition: Good Record reviewed to determine appropriate education?: Yes Instructions: Atrial Fibrillation Dc Comments: Talk with your doctor about a referral to a test driller. Since you are in A- fib frequently, they may want to do further work-up and/or consider a antiarrhythmic. You should definitely continue your medications including Xarelto. You can take an [id number] magnesium supplement such as magnesium oxide given the low normal magnesium you had here. Return for new or worsening symptoms.
[2022-10-15 14:36] LABS: BASOPHILS % (AUTO) 0.3 %; EOSINOPHILS # (AUTO) 0.2 10^3/uL (0.0-0.7); EOSINOPHILS % (AUTO) 1.7 %; HCT - HEMATOCRIT 42.7 % (42.0-52.0); HGB - HEMOGLOBIN 14.5 g/dL (14.0-18.0); LYMPHOCYTES # (AUTO) 3.7 10^3/uL (1.5-3.5); LYMPHOCYTES % (AUTO) 39.7 %; MEAN CORPUSCULAR HEMOGLOBIN 31.3 pg (27.0-31.0); MEAN CORPUSCULAR VOLUME 92.2 fL (80.0-94.0); MONOCYTES # (AUTO) 0.5 10^3/uL (0.0-1.0); MONOCYTES % (AUTO) 5.4 %; NEUTROPHILS # (AUTO) 4.9 10^3/uL (1.5-6.6); NEUTROPHILS % (AUTO) 52.8 %; PLT - PLATELET COUNT 150 10^3/uL (130-450); RED BLOOD COUNT 4.63 10^6/uL (4.70-6.10); WHITE BLOOD COUNT 9.2 x10^3/uL (4.8-10.8)
[2022-10-15 14:42] LABS: CALCIUM 8.9 mg/dL (8.5-10.3); CREATININE 0.9 mg/dL (0.6-1.2); MAGNESIUM 1.7 mg/dL (1.7-2.8); POTASSIUM 3.9 mmol/L (3.5-5.0)
[2022-10-15] MEDS ORDERED: PROPOFOL 200 MG/20 ML VIAL IVP STA ×2 (14:54→15:41)
[2022-10-15] MEDS ORDERED: MAGNESIUM SULFATE 2 GRAM 2 GM/50 ML BAG IV ONE (15:41)
[2022-10-15] MEDS ORDERED: SODIUM CHLORIDE 0.9% 1,000 ML IV STA (16:19)
[2022-10-15 17:10] VITALS: BP 114/62
== END 2022-10-15 17:11 | disposition home or self-care (01) ==
LOC: EDUNIT# → ED 14:09
DX: I48.0 Paroxysmal atrial fibrillation (principal); Z79.01 Long term (current) use of anticoagulants; Z86.718 Personal history of other venous thrombosis and embolism; I10 Essential (primary) hypertension
CPT/HCPCS: 36415; 80048; 83735; 84443; 85025; 92960; 93005; 94770; 99152; 99284

== ENCOUNTER 2022-10-25 09:55 | Outpatient (CLI) | payer MEDICARE ==
[2022-10-25 14:46] LABS: BASOPHILS # (AUTO) 0.1 10^3/uL (0.0-0.1); BASOPHILS % (AUTO) 0.7 %; EOSINOPHILS # (AUTO) 0.4 10^3/uL (0.0-0.7); EOSINOPHILS % (AUTO) 4.1 %; HCT - HEMATOCRIT 44.9 % (42.0-52.0); HGB - HEMOGLOBIN 15.3 g/dL (14.0-18.0); LYMPHOCYTES # (AUTO) 4.2 10^3/uL (1.5-3.5); LYMPHOCYTES % (AUTO) 49.2 %; MEAN CORPUSCULAR HGB CONC 34.1 g/dL (32.0-36.0); MEAN CORPUSCULAR VOLUME 93.9 fL (80.0-94.0); MEAN PLATELET VOLUME 10.3 fL (7.4-11.4); MONOCYTES # (AUTO) 0.5 10^3/uL (0.0-1.0); MONOCYTES % (AUTO) 5.6 %; NEUTROPHILS # (AUTO) 3.4 10^3/uL (1.5-6.6); NEUTROPHILS % (AUTO) 40.3 %; PLT - PLATELET COUNT 168 10^3/uL (130-450); RED BLOOD COUNT 4.78 10^6/uL (4.70-6.10); RED CELL DISTRIBUTION WIDTH 12.5 % (12.0-15.0); WHITE BLOOD COUNT 8.5 x10^3/uL (4.8-10.8)
[2022-10-25 15:19] LABS: THYROID STIMULATING HORMONE 6.02 uIU/mL (0.34-5.60)
[2022-10-25 15:28] LABS: ALBUMIN 3.9 g/dL (3.2-5.5); ALBUMIN/GLOBULIN RATIO 1.2 (1.0-2.2); ALKALINE PHOSPHATASE 45 IU/L (42-121); ALT ALANINE AMINOTRANSFERASE 21 IU/L (10-60); AST ASPARTATE AMINOTRANSFERASE 20 IU/L (10-42); BILIRUBIN,TOTAL 0.6 mg/dL (0.2-1.0); BUN - BLOOD UREA NITROGEN 13 mg/dL (6-20); CARBON DIOXIDE - CO2 29 mmol/L (21-32); CHLORIDE 103 mmol/L (101-111); CHOL/HDL RATIO 2.4 (<5.0); CHOLESTEROL 161 mg/dL; CREATININE 0.7 mg/dL (0.6-1.2); GFR - MDRD 109 (>89); GLUCOSE 104 mg/dL (70-100); HDL CHOLESTEROL 66 mg/dL; LDL CHOLESTEROL,CALCULATED 85 mg/dL; LDL/HDL RATIO 1.3 (<3.6); POTASSIUM 4.5 mmol/L (3.5-5.0); SODIUM 137 mmol/L (135-145); TOTAL PROTEIN 7.1 g/dL (6.7-8.2); TRIGLYCERIDES 51 mg/dL; VLDL CHOLESTEROL 10 mg/dL
[2022-10-25 15:53] LABS: FREE T4 (FREE THYROXINE) 0.97 ng/dL (0.58-1.64)
== END 2022-10-25 09:56 | disposition home or self-care (01) ==
LOC: LAB.S 09:55
PROVIDERS: ATTEND Registered Nurse
DX: I10 Essential (primary) hypertension (principal); E78.5 Hyperlipidemia, unspecified; Z79.899 Other long term (current) drug therapy; Z12.5 Encounter for screening for malignant neoplasm of prostate; N40.0 Benign prostatic hyperplasia without lower urinary tract symptoms
CPT/HCPCS: 36415; 80053; 80061; 84439; 84443; 85025; G0103; 83721; 84153

== ENCOUNTER 2023-11-11 08:53 | Outpatient (CLI) | payer MEDICARE ==
[2023-11-11 14:41] LABS: BASOPHILS % (AUTO) 0.5 %; EOSINOPHILS # (AUTO) 0.2 10^3/uL (0.0-0.7); HCT - HEMATOCRIT 46.9 % (42.0-52.0); HGB - HEMOGLOBIN 15.1 g/dL (14.0-18.0); LYMPHOCYTES # (AUTO) 4.1 10^3/uL (1.5-3.5); LYMPHOCYTES % (AUTO) 51.5 %; MEAN CORPUSCULAR HEMOGLOBIN 31.9 pg (27.0-31.0); MEAN CORPUSCULAR HGB CONC 32.2 g/dL (32.0-36.0); MEAN CORPUSCULAR VOLUME 98.9 fL (80.0-94.0); MEAN PLATELET VOLUME 11.5 fL (7.4-11.4); MONOCYTES # (AUTO) 0.5 10^3/uL (0.0-1.0); MONOCYTES % (AUTO) 5.8 %; NEUTROPHILS # (AUTO) 3.2 10^3/uL (1.5-6.6); NEUTROPHILS % (AUTO) 40.1 %; PLT - PLATELET COUNT 132 10^3/uL (130-450); RED BLOOD COUNT 4.74 10^6/uL (4.70-6.10); RED CELL DISTRIBUTION WIDTH 12.9 % (12.0-15.0); WHITE BLOOD COUNT 7.9 x10^3/uL (4.8-10.8)
[2023-11-11 14:58] LABS: ALBUMIN 4.1 g/dL (3.2-5.5); ALBUMIN/GLOBULIN RATIO 1.5 (1.0-2.2); ALKALINE PHOSPHATASE 44 IU/L (42-121); ALT ALANINE AMINOTRANSFERASE 23 IU/L (10-60); AST ASPARTATE AMINOTRANSFERASE 19 IU/L (10-42); BILIRUBIN,TOTAL 0.9 mg/dL (0.2-1.0); BUN - BLOOD UREA NITROGEN 16 mg/dL (6-20); CALCIUM 9.8 mg/dL (8.5-10.3); CARBON DIOXIDE - CO2 32 mmol/L (21-32); CHLORIDE 101 mmol/L (101-111); CHOL/HDL RATIO 2.4 (<5.0); CHOLESTEROL 166 mg/dL; CREATININE 0.9 mg/dL (0.6-1.3); GFR - MDRD 81 (>89); GLUCOSE 99 mg/dL (74-104); HDL CHOLESTEROL 69 mg/dL; LDL CHOLESTEROL,CALCULATED 85 mg/dL; LDL/HDL RATIO 1.2 (<3.6); POTASSIUM 4.6 mmol/L (3.5-4.5); SODIUM 136 mmol/L (135-145); TOTAL PROTEIN 6.9 g/dL (6.4-8.9); TRIGLYCERIDES 61 mg/dL (48-352); VLDL CHOLESTEROL 12 mg/dL
[2023-11-11 15:07] LABS: THYROID STIMULATING HORMONE 2.84 uIU/mL (0.34-5.60)
== END 2023-11-11 08:54 | disposition home or self-care (01) ==
LOC: LAB.S 08:53
PROVIDERS: ATTEND Registered Nurse
DX: E78.5 Hyperlipidemia, unspecified (principal); E03.9 Hypothyroidism, unspecified; Z79.899 Other long term (current) drug therapy
CPT/HCPCS: 36415; 80053; 80061; 83721; 84443; 85025